=== PATIENT | male | born 1945 | race Caucasian/White ===

== ENCOUNTER 2025-01-28 07:44 | Inpatient (IN) | payer MEDICARE, MEDICAID, SELFPAY ==
[2025-01-28] VITALS (8 sets, daily range): BP systolic 152–198; BP diastolic 51–82; PULSE 54–96; RESP 13–24; TEMP 36.2–36.6; O2SAT 92–98; BMI 37.3
--- NOTE | ~2025-01-28 | CT_ITS ---
CLINICAL HISTORY: stroke CT angiography head and neck with contrast. 3D Postprocessing. Comparison: MR/REG/SR - MR BRAIN WITHOUT IV CONTRAST - 01/28/25 13:[address]/SR - CT HEAD WITHOUT IV CONTRAST - 01/28/25 08:44 EDT Findings: Aortic arch and cervical great vessels are patent with no aneurysm, dissection, or occlusion. Calcified plaque in the bilateral carotid bifurcations with less than 50% stenosis in the proximal right ICA by NASCET criteria. No significant stenosis on the left. 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 Heavy atherosclerotic calcification in the cavernous carotid arteries without occlusion. Bilateral middle cerebral, bilateral anterior cerebral arteries, and right posterior cerebral arteries are patent. No aneurysm, dissection, or occlusion. No abnormal intracranial enhancement. Left [employer] territory infarct. Multiple nodules in both thyroid glands with the largest in the right lobe measuring 2.5 x 1.9 cm. Lung apices clear. No acute fracture. IMPRESSION: 1. 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 2. 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 3. Multiple nodules in both thyroid glands with the largest in the right lobe measuring 2.5 x 1.9 cm. Recommend nonemergent ultrasound for further evaluation. This document has been electronically signed by: Terri Coleman MD on 01/28/2025 21:06:49
--- NOTE | ~2025-01-28 | US_ITS ---
EXAMINATION: US THYROID HISTORY: nodule TECHNIQUE: Real-time grayscale ultrasound imaging was performed and images were reviewed. COMPARISON: Correlation is made with a CT angiogram of the neck dated 01/28/2025. FINDINGS: SIZE: The right thyroid lobe measures 6.1 x 3.4 x 2.3 cm. The left thyroid lobe measures 5.4 x 2.3 x 1.8 cm. The isthmus measures 4 mm. FLOW: Flow to the gland is normal. ECHOGENICITY: The echotexture of the gland is heterogeneous. NODULES: Multiple nodules are identified as described below: Nodule #: 1 Location: Right mid to upper pole measuring 1.7 x 1.1 x 1.4 cm. Shape: Wider than tall (0 points) Margins: Smooth (0 points) Echotexture: Hypoechoic (2 points) Composition: Mostly solid (2 points) Calcifications: None (0 points) Total points: 4 TIRADS: TR4: Moderately suspicious. Nodule #: 2 Location: Right lower pole measuring 2.9 x 2.6 x 2.5 cm. Shape: Taller than wide (3 points) Margins: Ill-defined (0 points) Echotexture: Hypoechoic (2 points) Composition: Mostly solid (2 points) Calcifications: None (0 points) Total points: 7 TIRADS: TR5: Highly suspicious. Nodule #: 3 Location: Left upper pole measuring 0.6 x 0.5 x 0.8 cm. Shape: Wider than tall (0 points) Margins: Ill-defined (0 points) Echotexture: Hypoechoic (2 points) Composition: Solid (2 points) Calcifications: None (0 points) Total points: 4 TIRADS: TR4: Moderately suspicious. Nodule #: 4 Location: Left mid to lower pole measuring 1.0 x 0.8 x 1 0.8 cm. Shape: Wider than tall (0 points) Margins: Ill-defined (0 points) Echotexture: Isoechoic (1 point) Composition: Solid (2 points) Calcifications: None (0 points) Total points: 3 TIRADS: TR3: Mildly suspicious. Nodule #: 5 Location: Left lower pole measuring 1.4 x 1.4 x 1.7 cm. Shape: Wider than tall (0 points) Margins: Smooth (0 points) Echotexture: Isoechoic (1 point) Composition: Solid (2 points) Calcifications: None (0 points) Total points: 3 TIRADS: TR3: Mildly suspicious. US/US thyroid IMPRESSION: Multiple bilateral thyroid nodules are identified as described above. According to ACR TI-RADS guidelines below, ultrasound-guided fine-needle aspiration of the most suspicious nodules (nodules #1 and 2 above on the right) is recommended. ACR TI-RADS Guidelines TR1 (0 points): Benign. No follow-up or biopsy required TR2 (2 points): Not Suspicious. No biopsy or follow up indicated TR3 (3 points): Mildly Suspicious. FNA if >= 2.5 cm, Follow if >= 1.5 cm TR4 (4-6 points): Moderately Suspicious. FNA if >= 1.5 cm, Follow if >= 1.0 cm TR5 (>=7 points): Highly Suspicious. FNA if >= 1.0 cm, Follow if >= 0.5 cm Electronically signed by: Michael Cade MD 01/29/2025 07:09 AM EDT
--- NOTE | ~2025-01-28 | MR_ITS ---
EXAMINATION: MR BRAIN WITHOUT CONTRAST CLINICAL INFORMATION: Evolving stroke. COMPARISON: Correlated to noncontrast CT dated January 28, 2025 at 8:48 AM. TECHNIQUE: MRI of the brain was obtained using routine sequences without contrast. FINDINGS: There is a large volume hyperintense T2 FLAIR restricted diffusion without susceptibility involving the left lingual gyrus, left hippocampus and likely left calcarine fissure. Moore-white matter effacement and effacement of the adjacent cerebral sulci. No mass effect, midline shift, hydrocephalus or herniation. No acute intracranial hemorrhage. Flow-void signal within the main cerebral vessels suggest absent left [employer]. Multiple old lacunar infarcts in the cribriform pattern, basal ganglia. Old lacunar infarct, left putamen and left frontal jones radiata white matter with associated old blood products. Sellar/suprasellar region is normal. Craniocervical junction demonstrates normal position of the cerebellar tonsils. Prominence of the extra-axial CSF spaces cerebral sulci and ventricles. MR/MR head/brain wo con IMPRESSION: Acute nonhemorrhagic stroke/ischemia involving the left [employer] territory. Small vessel occlusive disease. Global cerebral atrophy. Electronically signed by: Justin Gutiérrez MD 01/28/2025 02:15 PM EDT
--- NOTE | ~2025-01-28 | CT_ITS ---
EXAMINATION: CT HEAD WITHOUT IV CONTRAST HISTORY: AMS. TECHNIQUE: Unenhanced helical CT of the head was performed per standard departmental protocol. Coronal and sagittal reformats of the head were also evaluated. One or more of the following techniques was used for dose reduction: Automated exposure control, adjustment of the mA and/or kV according to patient size, use of iterative reconstruction technique. DLP: 733 mGy-cm COMPARISON: There are no prior studies available for comparison. FINDINGS: BRAIN: There is diffuse prominence of the ventricular system and cortical sulci, consistent with atrophy. Periventricular and subcortical white matter hypodensities are noted which are nonspecific, but often seen in the setting of small vessel ischemic disease. There is geographic hypodensity in the left posteromedial temporal lobe, compatible with an evolving infarct. 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 There is no mass effect or midline shift. No intra- or extra-axial fluid collections are identified. SINUSES: There is trace fluid in the left sphenoid sinus. The mastoid air cells and middle ear cavities are well pneumatized. ORBITS: The visualized orbits are unremarkable. BONES/SOFT TISSUES: The extracranial soft tissues are unremarkable. The calvarium is intact. No suspicious lytic or sclerotic lesions. CT/CT head/brain wo IV con IMPRESSION: Findings compatible with an evolving left temporal infarct. No evidence of intracranial hemorrhage. These findings were discussed with Dr. De La Rosa in the emergency room on 01/28/2025 at 9:04 AM. Electronically signed by: Michael Cade MD 01/28/2025 09:04 AM EDT
--- NOTE | 2025-01-28 07:58 | ECG_ITS ---
Test Reason : MEMORY ISUE Blood Pressure : */* mmHG Vent. Rate : 76 BPM Atrial Rate : 76 BPM P-R Int : 136 ms QRS Dur : 150 ms QT Int : 418 ms P-R-T Axes : * -39 31 degrees QTcB Int : 470 ms Sinus rhythm with sinus arrhythmia with occasional Premature ventricular complexes Left axis deviation Right bundle branch block Abnormal ECG No previous ECGs available Referred By: Hilaria De La Rosa Electronically Signed By: YANET GARCIA MD
--- NOTE | 2025-01-28 07:59 | PC.NURSE ---
Addendum entered by Sean Tracey RN 01/28/25 08:21: donna name is Philippe Original Note: 79 M presents to ED with R eye flashing and increased memory issues x 7-10 days. A+Ox1 to self, calm, cooperative, very forgetful of recent events. RR even and unlabored, denies SOB or CP, denies Pain. Pt brought in by donna(Bruce) phone: [phone]
--- NOTE | 2025-01-28 08:03 | ED.GENADULT ---
HPI - General Adult General Chief complaint: General Medical Stated complaint: memory issues Time Seen by Provider: 01/28/25 07:46 Source: patient, old records reviewed and other Mode of arrival: ambulatory Limitations: altered mental status History of Present Illness ED Provider: GABRIELLA VALENCIA narrative: 79 yo male with PMH of HTN, DM but unclear what meds he is taking states [facility] but unclear [facility]. He also admits he really only takes his BP medications. Today his old boss brought him in as the patient works at a [employer] center for years and his new boss noted change in memory about 10 days ago. The patient denies a preceding fall, he has not had any infections, he has no pain, the only thing he reports is seeing dark spots in R eye at times. His old boss who brought him has known him for 13 years and states that Jeff doesn't even know where he lives. There were no signs of memory issues leading up to this. The patient has no complaints but states he doesn't really remember a lot of things. He got lost on his way to work which he has been employed there for over 13 years. MD complaint: confusion Onset (ago): day(s) (10) Radiation: non-radiation Severity: moderate Quality: aching Relieving factors: none Exacerbating factors: none Associated symptoms: denies other symptoms Treatments prior to arrival: none Related Data Allergies Allergy/AdvReac Type Severity Reaction Status Date / Time No Known Allergies Allergy Verified 01/28/25 07:56 Review of Systems Review of Systems: Constitutional : No Fever, No Chills, No Fatigue ENT/Mouth : No sore throat, No Rhinorrhea Eyes: No Eye Pain, No Swelling, No Redness, pos eye floaters Cardiovascular : No Chest Pain, No SOB, No Dyspnea on Exertion Respiratory : No Cough, No Sputum Gastrointestinal : No Nausea, No Vomiting, No Diarrhea, No abdominal Pain Genitourinary : No Dysuria, No Urinary Frequency, No Hematuria, Musculoskeletal : No joint pain, No Myalgias, No Joint Swelling Skin : No Skin Lesions, No rash Neuro : No Weakness, No Numbness, No Dizziness, no Headache All other systems reviewed and are negative PMFSH Past Medical History Attestation statement: The following information was validated with the patient. Medical History Diabetes HTN (hypertension) Social History Social History (Updated 01/28/25 @ 08:10 by Hilaria De La Rosa DO) Alcohol intake: current Patient Tobacco Use Status: Never used Tobacco Smoked in Last 30 Days: No Use of substances other than those prescribed or required for medical reasons: No Advance Directives: No Advance Directives Information Provided: Yes Do you have a plan to hurt others: No Plan Physical Exam ED Vital Signs: Vital Signs - 24 hr 01/28/25 07:48 01/28/25 07:58 01/28/25 08:04 Temperature 97.9 F Pulse Rate 88 88 Respiratory Rate 13 13 Blood Pressure 198/76 H 198/76 H Pulse Oximetry 97 97 Oxygen Delivery Method Room Air Room Air 01/28/25 08:28 Temperature 97.9 F Pulse Rate 75 Respiratory Rate 24 H Blood Pressure 181/82 H Pulse Oximetry 97 Oxygen Delivery Method Room Air BMI result Body Mass Index 37.3 Appearance: Alert. Oriented x 1 to self unclear on where he lives or month/year No acute distress. Eyes: Pupils equal, round and reactive to light. ENT: Pharynx normal. atraumatic Neck: Normal inspection. Neck supple. CVS: Normal heart rate and rhythm. Pulses normal. Respiratory: No respiratory distress. Breath sounds normal. Abdomen: Soft and nontender. Skin: Skin warm and dry. Normal skin color. Normal skin turgor. Extremities: No lower extremity edema. Neuro: Oriented X 1. No motor deficit. No sensory deficit. CN2-12 intact, unsteady shuffling gait NIH Stroke Scale Internal: Initial- Upon Arrival Level of Consciousness: Alert Level of Consciousness Questions: Answers one question correctly Level of Consciousness Commands: Performs one task correctly Visual: No visual loss Facial Palsy: Normal Motor Arm (Right): No drift Motor Arm (Left): No drift Motor Leg (Right): No drift Motor Leg (Left): No drift Limb Ataxia: Absent Sensory: Normal Best Language: No aphasia Dysarthia: Normal Extinction and Inattention: No abnormality Procedures Procedure Narrative Procedure Narrative: EMERGENCY ULTRASOUND INTERPRETATION-Limited Ophthalmic US This study was ordered, performed, and interpreted by myself. The study reveals: Impression: vitreous hemorrhage - at this time it was very difficult due to eye movements and patient confusion Indication:?floatres R eye Anterior Chamber: NO PATHOLOGY VISUALIZED Posterior Chamber: vitreous hemorrhage Performed by: GABRIELLA Date: 01/28/25 Time: 910am CPT: 47719 ; Reference Codes? https://bit.ly/[email or web address] Medical Decision Making Medical Decision Making MDM Narrative: 79 yo male with PMH of HTN, DM but unclear what meds he is taking he is now here with c/o confusion x 10 days without known trauma. At this time will need basic labs, CT head for possible ICH/tumor/stroke, at this time there is a wide differential including termite control servicer cognitive impairment, labs, EKG, UA, metabolic work up. Differential Diagnosis Differential Diagnoses: The differential diagnosis associated with the presentation includes metabolic abnormality, stroke, vitreous hemorrhage, cognitive impairment, urinary pathology Admission/Observation Consideration of admission/observation: Escalation of care including admission/observation considered oral aspirin given will admit for stroke management Consult Healthcare Provider Management of the patient was discussed with: Hospitalist (will admit) Lab Data [facility] Lab Attestation statement: I reviewed the patient's lab results. 01/28/25 08:13 01/28/25 08:13 Labs: Lab Results 01/28/25 01/28/25 01/28/25 Range/Units 08:13 08:21 08:27 WBC 5.8 (4.8-10.8) X10*3/uL RBC 5.35 (4.60-5.80) X10*6/uL Hgb 14.6 (14.0-18.0) g/dl Hct 43.7 (42.0-52.0) % MCV 81.7 (80.0-98.0) fL MCH 27.3 (27.0-33.0) pg MCHC 33.4 (31.0-36.0) g/dl RDW 14.0 (11.0-16.0) % Plt Count 205 (160-400) X10*3/uL MPV 9.6 (9.4-12.4) fL Immature Gran % (Auto) 0.3 (0.0-0.4) % Neut % (Auto) 64.0 (45-73) % Lymph % (Auto) 27.2 (20-40) % Nelson % (Auto) 7.2 (2-11) % Eos % (Auto) 1.0 (0-4) % Baso % (Auto) 0.3 (0-2) % Lymph # (Auto) 1.6 (1.2-4.9) X10*3/uL Nelson # (Auto) 0.4 (0.1-1.2) X10*3/uL Eos # (Auto) 0.1 (0.0-0.4) X10*3/uL Baso # (Auto) 0.0 (0.0-0.2) X10*3/uL Abs Immat Gran (auto) 0.02 (0.00-0.03) X10*3/uL Absolute Neuts (auto) 3.7 (2.0-8.3) x10*3/uL Absolute Nucleated RBC 0.000 (0.0-0.012) X10*3/uL Nucleated RBC % (auto) 0.0 (0.0-0.2) /100WBC VBG pH 7.42 (7.32-7.43) VBG pCO2 34 mmHg VBG pO2 119 mmHg VBG HCO3 22 (22-26) mmol/L VBG O2 Saturation 99.0 % VBG Base Excess -0.8 mmol/L Sodium 140 (135-145) mmol/L Potassium 4.0 (3.3-5.1) mmol/L Chloride 110 H (96-108) mmol/L Carbon Dioxide 23 (22-29) mmol/L Anion Gap 11 L (12-20) BUN 15 (9-16) mg/dL Creatinine 0.73 (0.5-1.4) mg/dL Estim Creat Clear Calc 104.1 Estimated GFR > 60 POC Glucose 241 H (60-115) mg/dL Random Glucose 228 H (60-115) mg/dL Calcium 9.2 (8.4-10.2) mg/dL Magnesium 1.6 (1.6-2.6) mg/dL Total Bilirubin 1.5 H (0.0-1.0) mg/dL Direct Bilirubin 0.4 (0.0-0.5) mg/dL AST 21 (5-37) U/L ALT 17 (0-40) U/L Alkaline Phosphatase 60 (39-117) U/L Ammonia 41 (13-55) umol/L Troponin I High Sens 35.9 H (<3.5-35.0) ng/L C-Reactive Protein 0.17 (< or = 0.50) mg/dL Total Protein 6.8 (6.5-8.0) g/dL Albumin 4.2 (3.5-5.0) g/dL Lipase 34 (8-78) U/L Vitamin B12 485 (200-900) pg/mL Folate 11.0 (> or = 4.0) ng/mL TSH 0.79 (0.32-4.0) uIU/mL Urine Color Urine Appearance Urine pH (5.0-9.0) Ur Specific [place] (1.005-1.025) Urine Protein (Neg-Trace) mg/dL Urine Glucose (UA) (Negative) mg/dL Urine Ketones (Negative) mg/dL Urine Blood (Negative) Urine Nitrite (Negative) Ur Leukocyte Esterase (Negative) Urine RBC (0-2) /HPF Urine WBC (0-5) /HPF Ur Squamous Epith Cells (0-2) /HPF Urine Bacteria (None Seen) Hyaline Casts (0-2) /LPF Urine Opiates Screen (Not Detect) Ur Buprenorphine Scrn (Not Detect) ng/mL Ur Oxycodone Screen (Not Detect) ng/mL Urine Methadone Screen (Not Detect) ng/mL Urine Fentanyl Screen (Not Detect) Ur Barbiturates Screen (Not Detect) Ur Phencyclidine Scrn (Not Detect) Ur Amphetamines Screen (Not Detect) U Benzodiazepines Scrn (Not Detect) Urine Cocaine Screen (Not Detect) U Marijuana (THC) Screen (Not Detect) Ethyl Alcohol < 10 mg/dL COVID-19 (BRYCE) Negative (Negative) COVID-19 Clin Com See Note Influenza Type A (YESENIA) Negative (Negative) Influenza Type B (YESENIA) Negative (Negative) Influenza A & B Note See Note 01/28/25 Range/Units 09:04 WBC (4.8-10.8) X10*3/uL RBC (4.60-5.80) X10*6/uL Hgb (14.0-18.0) g/dl Hct (42.0-52.0) % MCV (80.0-98.0) fL MCH (27.0-33.0) pg MCHC (31.0-36.0) g/dl RDW (11.0-16.0) % Plt Count (160-400) X10*3/uL MPV (9.4-12.4) fL Immature Gran % (Auto) (0.0-0.4) % Neut % (Auto) (45-73) % Lymph % (Auto) (20-40) % Nelson % (Auto) (2-11) % Eos % (Auto) (0-4) % Baso % (Auto) (0-2) % Lymph # (Auto) (1.2-4.9) X10*3/uL Nelson # (Auto) (0.1-1.2) X10*3/uL Eos # (Auto) (0.0-0.4) X10*3/uL Baso # (Auto) (0.0-0.2) X10*3/uL Abs Immat Gran (auto) (0.00-0.03) X10*3/uL Absolute Neuts (auto) (2.0-8.3) x10*3/uL Absolute Nucleated RBC (0.0-0.012) X10*3/uL Nucleated RBC % (auto) (0.0-0.2) /100WBC VBG pH (7.32-7.43) VBG pCO2 mmHg VBG pO2 mmHg VBG HCO3 (22-26) mmol/L VBG O2 Saturation % VBG Base Excess mmol/L Sodium (135-145) mmol/L Potassium (3.3-5.1) mmol/L Chloride (96-108) mmol/L Carbon Dioxide (22-29) mmol/L Anion Gap (12-20) BUN (9-16) mg/dL Creatinine (0.5-1.4) mg/dL Estim Creat Clear Calc Estimated GFR POC Glucose (60-115) mg/dL Random Glucose (60-115) mg/dL Calcium (8.4-10.2) mg/dL Magnesium (1.6-2.6) mg/dL Total Bilirubin (0.0-1.0) mg/dL Direct Bilirubin (0.0-0.5) mg/dL AST (5-37) U/L ALT (0-40) U/L Alkaline Phosphatase (39-117) U/L Ammonia (13-55) umol/L Troponin I High Sens (<3.5-35.0) ng/L C-Reactive Protein (< or = 0.50) mg/dL Total Protein (6.5-8.0) g/dL Albumin (3.5-5.0) g/dL Lipase (8-78) U/L Vitamin B12 (200-900) pg/mL Folate (> or = 4.0) ng/mL TSH (0.32-4.0) uIU/mL Urine Color Yellow Urine Appearance Clear Urine pH 5.5 (5.0-9.0) Ur Specific [place] 1.025 (1.005-1.025) Urine Protein 30 (1+) H (Neg-Trace) mg/dL Urine Glucose (UA) 100 H (Negative) mg/dL Urine Ketones Negative (Negative) mg/dL Urine Blood Negative (Negative) Urine Nitrite Negative (Negative) Ur Leukocyte Esterase Negative (Negative) Urine RBC 0-2 (0-2) /HPF Urine WBC 0-5 (0-5) /HPF Ur Squamous Epith Cells 0-2 (0-2) /HPF Urine Bacteria None Seen (None Seen) Hyaline Casts 0-2 (0-2) /LPF Urine Opiates Screen Not Detected (Not Detect) Ur Buprenorphine Scrn Not Detected (Not Detect) ng/mL Ur Oxycodone Screen Not Detected (Not Detect) ng/mL Urine Methadone Screen Not Detected (Not Detect) ng/mL Urine Fentanyl Screen Not Detected (Not Detect) Ur Barbiturates Screen Not Detected (Not Detect) Ur Phencyclidine Scrn Not Detected (Not Detect) Ur Amphetamines Screen Not Detected (Not Detect) U Benzodiazepines Scrn Not Detected (Not Detect) Urine Cocaine Screen Not Detected (Not Detect) U Marijuana (THC) Screen Not Detected (Not Detect) Ethyl Alcohol mg/dL COVID-19 (BRYCE) (Negative) COVID-19 Clin Com Influenza Type A (YESENIA) (Negative) Influenza Type B (YESENIA) (Negative) Influenza A & B Note Independent Interpretation I performed an independent interpretation of an: EKG and CT Scan (evolving stroke) Interpretation: Rate: 76 Rhythm:NSR with occ PVCs Roark: left Normal P waves. Normal BAKARI. RBBB ST T wave : no TRESSA, flat t waves I and aVL qTC: 470 prior studies: no prior The study has been interpreted contemporaneously by me. . Radiology Impression Discussion of test interpretation with radiology: I have reviewed the radiologist's reading. Independent Historian Clinical information obtained from an independent historian. History obtained from or confirmed by: Friend External Record Review External record reviewed: Outpatient record Discharge Plan Discharge Clinical Impression: Acute alteration in mental status Stroke Qualifiers: CVA mechanism: unspecified Qualified Code(s): I63.9 - Cerebral infarction, unspecified Patient Disposition: Admitted As Inpatient Print Language: Pakistani
[2025-01-28 08:21] LABS: MANUAL DIFF FLAG NO
[2025-01-28 08:22] LABS: Hematocrit 43.7 % (42.0-52.0); Hemoglobin 14.6 g/dl (14.0-18.0); Imm Gran Abs Auto 0.02 X10*3/uL (0.00-0.03); Imm Gran Pct Auto 0.3 % (0.0-0.4); Lymphocytes Absolute Auto 1.6 X10*3/uL (1.2-4.9); Mean Corpuscular HGB Conc 33.4 g/dl (31.0-36.0); Mean Corpuscular Hemoglobin 27.3 pg (27.0-33.0); Mean Corpuscular Volume 81.7 fL (80.0-98.0); NRBC Abs Auto 0.000 X10*3/uL (0.0-0.012); NRBC Pct Auto 0.0 /100WBC (0.0-0.2); Platelet Count 205 X10*3/uL (160-400); Red Blood Count 5.35 X10*6/uL (4.60-5.80); White Blood Count 5.8 X10*3/uL (4.8-10.8)
[2025-01-28 08:25] LABS: Venous Blood Gas Refer to POC result
[2025-01-28 08:26] LABS: VBG HCO3 22 mmol/L (22-26); VBG O2 % Saturation 99.0 %
[2025-01-28 08:30] LABS: Ammonia 41 umol/L (13-55)
[2025-01-28 08:31] LABS: Glucose, Whole Blood 241 mg/dL (60-115)
[2025-01-28 08:39] LABS: Alanine Aminotransferase 17 U/L (0-40); Albumin Level 4.2 g/dL (3.5-5.0); Alkaline Phosphatase 60 U/L (39-117); Anion Gap 11 (12-20); Aspartate Amino Transferase 21 U/L (5-37); Blood Urea Nitrogen 15 mg/dL (9-16); Calcium 9.2 mg/dL (8.4-10.2); Carbon Dioxide 23 mmol/L (22-29); Chloride 110 mmol/L (96-108); Creatinine Clr Calc Pharmacy 104.1; Estimated Glomerular Filt Rate > 60; Lipase 34 U/L (8-78); Magnesium 1.6 mg/dL (1.6-2.6); Potassium 4.0 mmol/L (3.3-5.1); Sodium 140 mmol/L (135-145); Total Protein 6.8 g/dL (6.5-8.0)
[2025-01-28 08:47] LABS: Troponin-I High Sensitivity 35.9 ng/L (<3.5-35.0)
--- OUTSIDE RECORDS SUMMARY | 2025-01-28 08:48 | XMS_ITS | Clinical Summary ---
Author Organization [address] [facility] Address [address] [place] [address] Phone Care Team Providers Care Supervisor Small Appliance Assembly Name Role Phone Bk Vargas MD Primary Care Provider [phone] Allergies No known active allergies Medications semaglutide (Rybelsus) 7 mg tablet Take 1 tablet (7 mg total) by mouth 1 (one) time each day before breakfast. 4 Active omeprazole (PriLOSEC) [address] capsule Take 1 capsule (40 mg total) by mouth 1 (one) time each day. 9 Active loratadine-pseu doephedrine (CLARITIN-D 12-hour) 5-120 mg per 12 hr tablet Take 1 tablet by mouth every 12 (twelve) hours. 4 Active loratadine (CLARITIN) 10 mg tablet Take 1 tablet (10 mg total) by mouth once daily as needed. 4 Active freestyle 28 gauge lancets Use to check BG BID DX E11.22 Freestyle Lancets 4 Active lancing device 1 each by Other route 2 times daily. 1 Active fluticasone propionate (FLONASE) 50 mcg/actuation nasal spray Administer 1 spray into each nostril 1 (one) time each day. Active fluoride, sodium, 1.1 % gel Use in the mouth or throat daily. 4 Active fenofibrate micronized (LOFIBRA) 134 mg capsule Take 1 capsule (134 mg total) by mouth 1 (one) time each day with breakfast. 4 Active fenofibrate (LOFIBRA) 160 mg tablet Take 1 tablet (160 mg total) by mouth 1 (one) time each day with breakfast. 4 Active erythromycin 5 mg/gram (0.5 %) ophthalmic ointment APPLY 0.5 INCHES TO EYE 4 (FOUR) TIMES DAILY FOR 7 DAYS 4 Active Jardiance 25 mg tablet Take 1 tablet (25 mg total) by mouth 1 (one) time each day in the morning. 4 Active Banophen 25 mg capsule TAKE 1 CAPSULE BY MOUTH EVERY DAY *NOT COVERED BUY OTC 5 Active Farxiga 5 mg tablet Take 1 tablet (5 mg total) by mouth 1 (one) time each day. 4 Active atorvastatin (LIPITOR) 80 mg tablet Take 1 tablet (80 mg total) by mouth at bedtime. Active Ventolin HFA 90 mcg/actuation inhaler INHALE 2 PUFFS INTO THE LUNGS EVERY 4 (FOUR) HOURS NEEDED FOR SHORTNESS OF BREATH OR WHEEZING Active losartan (COZAAR) 100 mg tablet Take 1 tablet (100 mg total) by mouth 1 (one) time each day. 9 Active polyethylene glycol (Golytely) 236-22.74-6.74 -5.86 gram solution Take 4L by mouth once for one dose. May substitue any PEG. Starting at 6PM the night before your procedure drink 1 8oz glasses at your own pace until you complete half of the gallon. Finish 2nd half of the gallon 5 hours before your procedure. 4000 mL 5 Active bisacodyL (DULCOLAX) 5 mg EC tablet Take 2 tablets by mouth right before beginning bowel prep. See instructions provided by the office 2 tablet 5 Active amLODIPine (NORVASC) 5 mg tablet Take 1 tablet (5 mg total) by mouth 1 (one) time each day. 5 Active Medical History Medical History Date Comments Diabetes mellitus (CMS/HCC V24, CMS/HCC V28) DX:Diabetes mellitus (HCC) High blood pressure DX:High bloo d pressure Social History Tobacco Use Types Packs/Day Years Used Date Smoking Tobacco: Never Assessed Interpersonal Safety Answer Date Record ed Physical Abuse Unrecognized value 06/26/2024 Verbal Abuse Unrecognized value 06/26/2024 Sex and Gender Information Value Date Recorded Sex Assigned at Male 06/25/2024 9:38 AM EDT Legal Sex Male 1:39 AM EST Gender Identity Male 06/25/2024 9:38 AM EDT Sexual Orientation Straight 06/25/2024 1: 12 PM EDT Obstetrics History Last Filed Vital Signs Vital Sign Reading Time Taken Comments Blood Pressure 127/62 06/26/2024 11:01 AM EDT Pulse 82 06/26/2024 11:01 AM EDT Temperature 36.6 C (97.8 F) 06/26/2024 9:58 AM EDT Respiratory Rate 16 06/26/2024 11:01 AM EDT Oxygen Saturation 98% 06/26/2024 11:01 AM EDT Inhaled Oxygen Concentration - - Weight 109 kg (240 lb) 06/26/2024 9:58 AM EDT Height 175.3 cm (5' 9 ) 06/26/2024 9:58 AM EDT Body Mass Index 35.44 06/26/2024 9:58 AM EDT Plan of Treatment Health Maintenance Due Date Last Done Comments Diabetes: Annual Foot Exam 1955 Diabetes: Annual Retina Eye Exam 1955 RSV Immunization Adult Patients (1 - 1-dose 75+ series) 2021 Medicare Annual Wellness Visit 03/02/2024 Social Influencers of Health Screening 03/02/2024 Depression Screening 04/08/2024 COVID-19 Vaccine ( season) 2024 02/10/2022, 03/15/2021, 06/18/2020, Additional history exists Influenza Vaccine (#1) 2024 , 04/30/2023, 02/10/2022, Additional history exists Diabetes: Blood Sugar Control Test (HGBA1C) 02/06/2025 08/06/2024, 03/07/2024 Diabetes: Annual Urine Albumin-Creatinine Ratio (uACR) 03/07/2025 03/07/2024, 03/28/2022, 06/27/2020, Additional history exists Diabetes: Annual GFR (Glomerular Filtration Rate) 03/07/2025 03/07/2024 Hypertension/CHF/CAD Annual BMP Blood Test 03/07/2025 03/07/2024 Falls Risk Assessment 06/26/2025 06/26/2024 DTaP,Tdap,and Td Vaccines (3 - Td or Tdap) 02/25/2029 02/25/2019, 05/30/2015 Cholesterol Screening (Lipid Panel) 03/07/2029 03/07/2024, 03/07/2024, 03/28/2022, Additional history exists Pneumococcal Vaccine: 50+ Years Completed 02/18/2017, 05/30/2015 Hepatitis C Screening Completed 01/03/2018, 018 Zoster Vaccines Completed 09/18/2022, 07/10/2022 Colorectal Cancer Screening: Colonoscopy Discontinued 06/26/2024 HIB Vaccines Aged Out No longer eligi ble based on patient's age to complete this topic HPV Vaccines Aged Out No longer eligi ble based on patient's age to complete this topic Hepatitis A Vaccines Aged Out No long er eligible based on patient's age to complete this topic Hepatitis B Vaccines Aged Out No long er eligible based on patient's age to complete this topic IPV Vaccines Aged Out No longer eligi ble based on patient's age to complete this topic MMR Vaccines Aged Out No longer eligi ble based on patient's age to complete this topic Meningococcal ACWY Vaccine Aged Out N o longer eligible based on patient's age to complete this topic Meningococcal B Vaccine Aged Out No l onger eligible based on patient's age to complete this topic RSV Immunization Patients Under 20 months Aged Out No longer eligible based on patient's age to complete this topic Varicella Vaccines Aged Out No longer eligible based on patient's age to complete this topic Procedures Procedure Name Priority Date/Time Associated Diagnosis Comments COLONOSCOPY Routine 06/26/2024 10:40 AM EDT Adenomatous polyp of colon, unspecified part of colon from Last 3 Months or Most Recently Relevant to Health Maintenance Results * COLONOSCOPY Anesthesia - MAC; [facility] ENDOSCOPY (06/26/2024 10:40 AM EDT) Anatomical Region Laterality Modality Other 06/26/2024 10:1 9 AM EDT Impressions 06/26/2024 10:41 AM EDT - One 6 mm polyp in the sigmoid colon, removed with a cold snare. Resected and retrieved. - One 3 mm polyp in the transverse colon, removed with a jumbo cold forceps. Resected and retrieved. Recommendation: - Patient has a contact number available for emergencies. The signs and symptoms of potential delayed complications were discussed with the patient. Return to normal activities tomorrow. Written discharge instructions were provided to the patient. - Resume previous diet. - Continue present medications. - Await pathology results. - Repeat colonoscopy in 5-10 years for surveillance. Narrative 06/26/2024 10:[address] [facility] GI Patient Name: Jeff Villalba Procedure Date: 06/26/2024 10:19 AM Date of : 1945 Age: 78 Room: ROOM 14 Gender: Male Note Status: Finalized Attending MD: Denver Degroot MD, Procedure Date No Time: 06/26/2024 Procedure: Colonoscopy Indications: High risk colon cancer surveillance: Personal history of colonic polyps Providers: Denver Degroot MD Referring MD: Denver Degroot MD Medicines: Monitored Anesthesia Care Complications: No immediate complications. Estimated Blood Loss: Estimated blood loss was minimal. Procedure: After I obtained informed consent, the scope was passed under direct vision. Throughout the procedure, the patient's blood pressure, pulse, and oxygen saturations were monitored continuously. The Olympus Colonoscope was introduced through the anus and advanced to the cecum, identified by appendiceal orifice and ileocecal valve. The colonoscopy was performed without difficulty. The patient tolerated the procedure well. The quality of the bowel preparation was adequate. Findings: A 6 mm polyp was found in the sigmoid colon. The polyp was sessile. The polyp was removed with a cold snare. Resection and retrieval were complete. A 3 mm polyp was found in the transverse colon. The polyp was sessile. The polyp was removed with a jumbo cold forceps. Resection and retrieval were complete. Procedure Code(s): --- Professional --- 69642, Colonoscopy, flexible; with removal of tumor(s), polyp(s), or other lesion(s) by snare technique [id number], 59, Colonoscopy, flexible; with biopsy, single or multiple Diagnosis Code(s): --- Professional --- D12.3, Benign neoplasm of transverse colon (hepatic flexure or splenic flexure) D12.5, Benign neoplasm of sigmoid colon Z86.010, Personal history of colonic polyps CPT copyright 2020 [employer]. All rights reserved. The codes documented in this report are preliminary and upon environmental services attendant review may be revised to meet current compliance requirements. MD Denver Flores MD 06/26/2024 10:41:17 AM This report has been signed electronically.Denver Degroot MD Number of Addenda: 0 Note Initiated On: 06/26/2024 10:19 AM Scope In: Scope Out: Endoscopy Department at [facility] - [address] [place] [id number] Procedure Note Denver Degroot MD - 06/26/2024 [facility] GI Patient Name: Jeff Villalba Procedure Date: 06/26/2024 10:19 AM Date of : 1945 Age: 78 Room: ROOM 14 Gender: Male Note Status: Finalized Attending MD: Denver Degroot MD, Procedure Date No Time: 06/26/2024 Procedure: Colonoscopy Indications: High risk colon cancer surveillance: Personalhistory of colonic polyps Providers: Denver Degroot MD Referring MD: Denver Degroot MD Medicines: Monitored Anesthesia Care Complications: No immediate complications. Estimated Blood Loss: Estimated blood loss was minimal. Procedure: After I obtained informed consent, the scope was passed under direct vision. Throughout theprocedure, the patient's blood pressure, pulse, and oxygen saturations were monitored continuously. TheOlympus Colonoscope was introduced through the anus and advanced to the cecum, identified by appendiceal orifice and ileocecal valve. The colonoscopy was performed without difficulty. The patient tolerated the procedure well. The quality of the bowel preparation was adequate. Findings: A 6 mm polyp was found in the sigmoid colon. Thepolyp was sessile. The polyp was removed with a coldsnare. Resection and retrieval were complete. A 3 mm polyp was found in the transverse colon. The polyp was sessile. The polyp was removed with ajumbo cold forceps. Resection and retrieval werecomplete. Procedure Code(s): --- Professional --- 10323, Colonoscopy, flexible; with removal of tumor(s), polyp(s), or other lesion(s) by snare technique [id number], 59, Colonoscopy, flexible; with biopsy,single or multiple Diagnosis Code(s): --- Professional --- D12.3, Benign neoplasm of transverse colon (hepatic flexure or splenic flexure) D12.5, Benign neoplasm of sigmoid colon Z86.010, Personal history of colonic polyps CPT copyright 2020 [employer]. All rights reserved. The codes documented in this report are preliminary and upon environmental services attendant reviewmay be revised to meet current compliance requirements. MD Denver Flores MD 06/26/2024 10:41:17 AM This report has been signed electronically.Denver Degroot MD Number of Addenda: 0 Note Initiated On: 06/26/2024 10:19 AM Scope In: Scope Out: Endoscopy Department at [facility] - [address] [place] [id number] IMPRESSION: - One 6 mm polyp in the sigmoid colon, removed with a cold snare. Resected and retrieved. - One 3 mm polyp in the transverse colon, removedwith a jumbo cold forceps. Resected and retrieved. Recommendation: - Patient has a contact number available for emergencies. The signs and symptoms of potential delayed complications were discussed with thepatient. Return to normal activities tomorrow. Written discharge instructions were provided to thepatient. - Resume previous diet. - Continue present medications. - Await pathology results. - [email or web address] Denver Degroot MD GI~PROCEDURE ORDERABLES Final R esult from Last 3 Months or Most Recently Relevant to Health Maintenance Insurance MEDICAID - [place] MEDICARE Advance Directives Documents on File Type Date Recorded Patient Banana Loader Expl anation Advance Directives and Living Will 06/30/2024 4:28 PM PROXY Power of Cable Operator 06/26/2024 9:56 AM Bimal Care Proxy Care Teams Supervisor Small Appliance Assembly Relationship Specialty Start Date End Date Bk Vargas MD [address] [place] [address] PCP - General Internal Medicine 12/04/18
--- OUTSIDE RECORDS SUMMARY | 2025-01-28 08:48 | XMS_ITS | Encounter Summary ---
Author Organization [facility] Address [address] [place] [address] Care Team Providers Care Reset Merchandiser Name Role Phone Zena Brown PA-C Primary Care Provider Encounter Details Date Type Department Care Team (Late Contact Info) Description 12/20/2021 Interim Notes [facility] [address] [place] [phone] Lucia Michele, Community Health Worker [address] [place] [address] Social History Tobacco Use Types Packs/Day Years Used Date Smoking Tobacco: Never Smokeless Tobacco: Never Alcohol Use Standard Drinks/Week Comments No 0 (1 standard drink = 0.6 oz pur e alcohol) Social Connections Answer Date Recorded Connectedness 0 12/20/2021 Financial Resource Strain Answer Date R ecorded Financial Resource Strain 0 2021 Stress Answer Date Recorded Stress 0 12/20/2021 Physical Activity Answer Date Recorded Physical Activity 0 11/24/2018 Food Insecurity Answer Date Recorded Food 0 12/20/2021 Transportation Needs Answer Date Record ed Transportation 0 12/20/2021 Housing Stability Answer Date Recorded Housing 0 12/20/2021 Safety and Environment Answer Date Saqib rded Safety 0 12/20/2021 Utilities Answer Date Recorded Utilities 0 12/20/2021 Employment Answer Date Recorded Stress 0 12/20/2021 Sex and Gender Information Value Date Recorded Sex Assigned at Male 02/18/2017 1:28 PM PST Legal Sex Male 11:36 AM PDT Gender Identity Male 02/18/2017 1:28 PM PST Sexual Orientation Straight 04/05/2017 10 :44 AM PST documented as of this encounter Plan of Treatment Upcoming Encounters Date Type Department Care Team (Late Contact Info) Description 01/29/2025 3:20 PM EDT Office Visit [facility] [address] [place] [address] Juan Smith, JewelD [address] [place] [address] 02/26/2025 3:00 PM EST Office Visit [facility] [address] [place] [phone] Caridad Tovar, DMD [address] [place] [address] 07/01/2025 4:20 PM EDT Office Visit [facility] [address] [place] [phone] Roseann Moulton [address] [place] [address] documented as of this encounter Visit Diagnoses Not on filedocumented in this encounter Care Teams Reset Merchandiser Relationship Specialty Start Date End Date Zena Brown PA-C [address] [place] [address] PCP - General [facility]ILY MEDICINE[facility]ANG 10/28/24 documented as of this encounter
--- OUTSIDE RECORDS SUMMARY | 2025-01-28 08:50 | XMS_ITS | Clinical Summary ---
Author Organization [facility] Address [address] [place] [address] Care Team Providers Care Camp Head Counselor Name Role Phone Bk Vargas MD Primary Care Provider [phone] Allergies No known active allergies Medications Medication Sig Dispensed Refills Start Date End Date Status fluticasone (FLONASE) 50 MCG/ACT nasal spray 1 SPRAY INTO THE NOSTRIL(S) ONCE DAILY 0 11/29/2018 Active hydroCHLOROthiazide (HYDRODIURIL) tablet 25 mg Take 25 mg by mouth daily. 3 11/04/2018 Active ibuprofen (ADVIL,MOTRIN) 600 MG tablet TAKE 1 TABLET BY MOUTH FOUR TIMES A DAY NEEDED FOR PAIN 1 11/27/2018 Active loratadine (CLARITIN) 10 MG tablet TAKE 1 TABLET BY MOUTH ONCE DAILY NEEDED FOR ALLERGIES 2 11/15/2018 Active losartan (COZAAR) 100 MG tablet Take 100 mg by mouth daily. 5 09/21/2018 Active omeprazole (PriLOSEC) 40 MG capsule Take 40 mg by mouth daily. 11 09/30/2018 Active pravastatin (PRAVACHOL) tablet 40 mg Take 40 mg by mouth daily. 1 11/11/2018 Active metFORMIN (GLUCOPHAGE-XR) ER 24 hr tablet 500 mg Take 1,000 mg by mouth. 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 Social History Tobacco Use Types Packs/Day Years Used Date Smoking Tobacco: Never Assessed Sex and Gender Information Value Date Recorded Sex Assigned at Not on file Gender Identity Not on file Sexual Orientation Not on file Last Filed Vital Signs Vital Sign Reading Time Taken Comments Blood Pressure - - Pulse - - Temperature - - Respiratory Rate - - Oxygen Saturation - - Inhaled Oxygen Concentration - - Weight 117.9 kg (260 lb) 12/12/2018 3:34 PM EDT Height 175.3 cm (5' 9 ) 12/12/2018 3:34 PM EDT Body Mass Index 38.4 12/12/2018 3:34 PM EDT Plan of Treatment Health Maintenance Due Date Last Done Comments Hepatitis C Screening 1945 COVID-19 Vaccine (#1) 03/21/1946 Depression Screening 1958 BMI Counseling 1964 Preventative Health Evaluation 1963 Shingrix-Zoster Vaccine (1 of 2) 1996 Fall Risk Assessment 09/20/2011 RSV Adult > 60+ Yrs or (1 - 1-dose 75+ series) 2021 Influenza Vaccine (#1) 2024 8, 01/31/2017, 02/12/2016, Additional history exists DTap / Tdap / Td (2 - Td or Tdap) 05/30/2025 05/30/2015 Pneumococcal Vaccine Completed 02/18/2017, 05/30/19 16 Hepatitis B Vaccines Aged Out No long er eligible based on patient's age to complete this topic RSV Ped < 20 months Aged Out No longe r eligible based on patient's age to complete this topic Care Teams Camp Head Counselor Relationship Specialty Start Date End Date Bk Vargas MD [address] [place] [address] PCP - General Internal Medicine 12/04/18
[2025-01-28 09:02] LABS: IDNOW Serial# 58CA691E
[2025-01-28 09:03] LABS: COVID-19 Test Negative (Negative); IDNOW Serial# 55D5AD1C; Influenza B2 Negative (Negative)
[2025-01-28 09:11] LABS: Folate 11.0 ng/mL (> or = 4.0); Vitamin B12 485 pg/mL (200-900)
[2025-01-28 09:12] LABS: Appearance Urine Clear; Glucose Urine UA 100 mg/dL (Negative); PH 5.5 (5.0-9.0); Specific Gravity - Urine 1.025 (1.005-1.025); UMIC TRIGGER UACC YES
[2025-01-28 09:21] LABS: Cannabinoid Screen Urine Not Detected (Not Detect)
--- NOTE | 2025-01-28 09:37 | PM.IMHP ---
History of Present Illness Date of Service: 01/28/25 Chief Complaint: Memory issues, visual problems 79-year-old male with a history of hypertension (on Norvasc 10 mg daily), hyperlipidemia (on Lipitor 80 mg), diabetes mellitus (on metformin 500 mg BID and Farxiga), and GERD (on PPI), presented to the ED after his friend and employer noted recent confusion. The patient has been alert only to self, unable to state his address, and has had difficulty driving to work. He reports a sensation of fluid in the right eye but denies visual loss. No focal neurological deficits were noted on exam. Review of Systems Review of Systems: General: Confusion, no fever or chills Eyes: Sensation of fluid in right eye, no visual loss Neurological: Disorientation, no focal deficits reported Other systems: Unremarkable [facility] Medical History HLD (hyperlipidemia) Diabetes HTN (hypertension) Social History (Updated 01/28/25 @ 08:10 by Hilaria De La Rosa DO) Household Members: None Housing: Apartment Do you presently have visiting nurse or other home services: No Alcohol intake: current Patient Tobacco Use Status: Never used Tobacco Tobacco use type: Cigar e-Cigarette/Vaping Use: Never Used Second Hand Smoke Exposure: No Meds Allergies Allergy/AdvReac Type Severity Reaction Status Date / Time No Known Allergies Allergy Verified 01/28/25 07:56 Active Medications: Current Medications Acetaminophen (Acetaminophen 325 Mg Tablet) 650 mg PO Q6H PRN PRN Reason: Pain, Mild 1-3,fever,headache Aspirin (Aspirin Enteric Coated 81 Mg Tablet.) 81 mg PO DAILY [facility] Atorvastatin Calcium (Atorvastatin Calcium 80 Mg Tablet) 80 mg PO DAILY [facility] Calcium Carbonate (Calcium Carbonate 750 Mg Tab.Chew) 750 mg PO Q4H PRN PRN Reason: Heartburn Magnesium Hydroxide (Milk Of Magnesia 30 Ml Oral.Susp) 30 ml PO DAILY PRN PRN Reason: Constipation Melatonin (Melatonin 3 Mg Tablet) 6 mg PO BEDTIME PRN PRN Reason: Insomnia Ondansetron HCl (Ondansetron Hcl 4 Mg/2 Ml Vial) 4 mg IVPUSH Q8H PRN PRN Reason: Nausea and Vomiting Polyethylene Glycol (Polyethylene Glycol 3350 17 Gm Powd.Pack) 17 gm PO DAILY PRN PRN Reason: Constipation Home Medications ?Medication ?Instructions ?Recorded ?Confirmed ?Last Taken ?Type amlodipine 10 mg tablet 10 mg PO DAILY 01/28/25 01/28/25 01/27/25 History atorvastatin 80 mg tablet 80 mg PO BEDTIME 01/28/25 01/28/25 01/27/25 History dapagliflozin propanediol 10 mg 10 mg PO QAM 01/28/25 01/28/25 01/27/25 History tablet (Farxiga) diphenhydramine HCl 25 mg capsule 25 mg PO DAILY PRN allergies 01/28/25 01/28/25 01/27/25 History fenofibrate 160 mg tablet 160 mg PO QAM 01/28/25 01/28/25 01/27/25 History fluticasone propionate 50 1 spray intranasal DAILY 01/28/25 01/28/25 01/27/25 History mcg/actuation nasal spray,suspension losartan 100 mg tablet 100 mg PO DAILY 01/28/25 01/28/25 01/27/25 History metformin 500 mg tablet,extended 1,000 mg PO DAILY 01/28/25 01/28/25 01/28/25 06:00 History release 24 hr semaglutide 14 mg tablet (Rybelsus) 14 mg PO DAILY 01/28/25 01/28/25 01/27/25 History Physical Exam Vital Signs and Narrative: Vital Signs: Last Vital Signs Temp 97.9 F 01/28/25 08:28 Pulse 75 01/28/25 08:28 Resp 24 H 01/28/25 08:28 BP 181/82 H 01/28/25 08:28 Pulse Ox 97 01/28/25 08:28 O2 Del Method Room Air 01/28/25 08:28 BMI result Body Mass Index 37.3 Results Labs 01/29/25 05:56 01/29/25 05:56 Labs: Laboratory Results - last 24 hr 01/28/25 01/28/25 01/28/25 08:13 08:21 08:27 MCV 81.7 MCH 27.3 MCHC 33.4 RDW 14.0 Plt Count 205 MPV 9.6 Immature Gran % (Auto) 0.3 Neut % (Auto) 64.0 Lymph % (Auto) 27.2 [place] % (Auto) 7.2 Eos % (Auto) 1.0 Baso % (Auto) 0.3 Lymph # (Auto) 1.6 [place] # (Auto) 0.4 Eos # (Auto) 0.1 Baso # (Auto) 0.0 Abs Immat Gran (auto) 0.02 Absolute Neuts (auto) 3.7 Absolute Nucleated RBC 0.000 Nucleated RBC % (auto) 0.0 VBG pH 7.42 VBG pCO2 34 VBG pO2 119 VBG HCO3 22 VBG O2 Saturation 99.0 VBG Base Excess -0.8 Anion Gap 11 L Estim Creat Clear Calc 104.1 Estimated GFR > 60 POC Glucose 241 H Random Glucose 228 H Calcium 9.2 Magnesium 1.6 Total Bilirubin 1.5 H Direct Bilirubin 0.4 AST 21 ALT 17 Alkaline Phosphatase 60 Ammonia 41 Troponin I High Sens 35.9 H C-Reactive Protein 0.17 Total Protein 6.8 Albumin 4.2 Lipase 34 Vitamin B12 485 Folate 11.0 TSH 0.79 Urine Color Urine Appearance Urine pH Ur Specific [place] Urine Protein Urine Glucose (UA) Urine Ketones Urine Blood Urine Nitrite Ur Leukocyte Esterase Urine RBC Urine WBC Ur Squamous Epith Cells Urine Bacteria Hyaline Casts Urine Opiates Screen Ur Buprenorphine Scrn Ur Oxycodone Screen Urine Methadone Screen Urine Fentanyl Screen Ur Barbiturates Screen Ur Phencyclidine Scrn Ur Amphetamines Screen U Benzodiazepines Scrn Urine Cocaine Screen U Marijuana (THC) Screen Ethyl Alcohol < 10 COVID-19 (BRYCE) Negative COVID-19 Clin Com See Note Influenza Type A (YESENIA) Negative Influenza Type B (YESENIA) Negative Influenza A & B Note See Note 01/28/25 09:04 MCV MCH MCHC RDW Plt Count MPV Immature Gran % (Auto) Neut % (Auto) Lymph % (Auto) [place] % (Auto) Eos % (Auto) Baso % (Auto) Lymph # (Auto) [place] # (Auto) Eos # (Auto) Baso # (Auto) Abs Immat Gran (auto) Absolute Neuts (auto) Absolute Nucleated RBC Nucleated RBC % (auto) VBG pH VBG pCO2 VBG pO2 VBG HCO3 VBG O2 Saturation VBG Base Excess Anion Gap Estim Creat Clear Calc Estimated GFR POC Glucose Random Glucose Calcium Magnesium Total Bilirubin Direct Bilirubin AST ALT Alkaline Phosphatase Ammonia Troponin I High Sens C-Reactive Protein Total Protein Albumin Lipase Vitamin B12 Folate TSH Urine Color Yellow Urine Appearance Clear Urine pH 5.5 Ur Specific [place] 1.025 Urine Protein 30 (1+) H Urine Glucose (UA) 100 H Urine Ketones Negative Urine Blood Negative Urine Nitrite Negative Ur Leukocyte Esterase Negative Urine RBC 0-2 Urine WBC 0-5 Ur Squamous Epith Cells 0-2 Urine Bacteria None Seen Hyaline Casts 0-2 Urine Opiates Screen Not Detected Ur Buprenorphine Scrn Not Detected Ur Oxycodone Screen Not Detected Urine Methadone Screen Not Detected Urine Fentanyl Screen Not Detected Ur Barbiturates Screen Not Detected Ur Phencyclidine Scrn Not Detected Ur Amphetamines Screen Not Detected U Benzodiazepines Scrn Not Detected Urine Cocaine Screen Not Detected U Marijuana (THC) Screen Not Detected Ethyl Alcohol COVID-19 (BRYCE) COVID-19 Clin Com Influenza Type A (YESENIA) Influenza Type B (YESENIA) Influenza A & B Note Imaging Radiologist's Impressions: Impressions Head CT 01/28/25 08:44 IMPRESSION: Findings compatible with an evolving left temporal infarct. No evidence of intracranial hemorrhage. These findings were discussed with Dr. De La Rosa in the emergency room on 01/28/2025 at 9:04 AM. Electronically signed by: Michael Cdae MD 01/28/2025 09:04 AM EDT RP Assessment and Plan (1) Stroke: Qualifiers: CVA mechanism: unspecified Qualified Code(s): I63.9 - Cerebral infarction, unspecified Status: Acute (2) Acute alteration in mental status: Status: Acute (3) HLD (hyperlipidemia): Status: Acute Plan 79-year-old male with multiple vascular risk factors (HTN, DM, HLD) presenting with acute confusion and disorientation, found to have an evolving left temporal infarct on CT. No focal neurological deficits on exam. Troponin elevated, likely demand-related but requires further evaluation. Hyperglycemia and suboptimal diabetes control. Proteinuria noted. Plan: Acute Ischemic Stroke Admit to monitored setting Continue close neurological monitoring MRI brain to confirm and further characterize infarct Neurology consult for management and recommendations Maintain BP per stroke protocol--permisive HTN Physical and Occupational Therapy Secondary Stroke Prevention with ASA, statin Troponin elevated; likely type 2 [place], no chest pain EKG and telemetry monitoring, repeat troponin Echocardiogram to assess for cardiac source of embolism and wall motion abnormalities Diabetes Management SSI, diabetic diet, hold metformin for now Proteinuria outpatient follow NANCY for BP when able HTN, resume med DVT prophylaxis: Lovenox Full code diabetic diet Quality Stroke Does the patient have a stroke diagnosis?: No VTE Prior VTE?: No VTE Risk Level:: Medical - moderate - high VTE Device Contraindication: Treatment Not Indicated VTE Drug Contraindication: N/A - Med Ordered
[2025-01-28 09:45] LABS: Cholesterol 169 mg/dL (<200); HDL Cholesterol 38 mg/dL (>40); Triglycerides 139 mg/dL (<150)
--- NOTE | 2025-01-28 10:29 | P.CNNE_ITS ---
History of Present Illness Data of Consult Service Date: 01/28/25 Primary Care Provider: Unknown Physician HPI Reason for consult: Change in mental status 79 years old man with hypertension and diabetes working was brought to hospital with change in mental status or confusion. Apparently this started few days ago. Apparently his employer or some other people noted problem with him and he was sent here. There was no evidence of any focal weakness or seizure. He did not have any recent febrile illness. He said that there was something wrong with him but he could not elaborate. He denied drinking alcohol, ?at least not for few years?. There was no known history of any use of illicit drug. Review of Systems 2 Review of Systems: Constitutional:?No fever, chills, fatigue, weight loss, or night sweats. HEENT:?No headache, vision changes, hearing loss, nasal congestion, sore throat. Cardiovascular:?No chest pain, palpitations, orthopnea, PND, or leg swelling. Respiratory:?No cough, shortness of breath, wheezing, or hemoptysis. Gastrointestinal:?No nausea, vomiting, abdominal pain, diarrhea, or constipation. Genitourinary:?No dysuria, frequency, incontinence, or hematuria. Musculoskeletal:?No joint pain, stiffness, weakness, or muscle aches. Neurological:? No seizure-like activity Psychiatric:? No history of drug or alcohol use, as per patient Endocrine:?No heat/cold intolerance, polydipsia, polyuria, or hair/skin changes. Hematologic/Lymphatic:?No easy bruising, bleeding, or lymphadenopathy. Integumentary (Skin):?No rash, lesions, itching, or color changes. Allergic/Immunologic:?No seasonal allergies, hives, or recurrent infections. [facility] Past Medical History Medical History (Updated 01/28/25 @ 10:21 by Clint Kang MD) HLD (hyperlipidemia) Diabetes HTN (hypertension) Social History Social History (Updated 01/28/25 @ 08:10 by Hilaria De La Rosa DO) Alcohol intake: current Patient Tobacco Use Status: Never used Tobacco Smoked in Last 30 Days: No Use of substances other than those prescribed or required for medical reasons: No Advance Directives: No Advance Directives Information Provided: Yes Do you have a plan to hurt others: No Plan Meds Allergies Allergy/AdvReac Type Severity Reaction Status Date / Time No Known Allergies Allergy Verified 01/28/25 07:56 Active Medications: Current Medications Acetaminophen (Acetaminophen 325 Mg Tablet) 650 mg PO Q6H PRN PRN Reason: Pain, Mild 1-3,fever,headache Aspirin (Aspirin Enteric Coated 81 Mg Tablet.Dr) 81 mg PO DAILY REPLACED BY [facility] Last Admin: 01/28/25 09:42 Dose: Not Given Atorvastatin Calcium (Atorvastatin Calcium 80 Mg Tablet) 80 mg PO BEDTIME [facility] Calcium Carbonate (Calcium Carbonate 750 Mg Tab.Chew) 750 mg PO Q4H PRN PRN Reason: Heartburn Dextrose (Dextrose 50 % 25 Gm/50 Ml Syringe) 25 gm IVPUSH Q15M PRN; Protocol PRN Reason: per Hypoglycemia Standing Ord. Enoxaparin Sodium (Enoxaparin Sodium 40 Mg/0.4 Ml Syringe) 40 mg SUBCUT Q24H REPLACED BY [facility] Glucose (Glucose Gel 15 Gm Gel..Gram.) 15 gm PO Q15M PRN; Protocol PRN Reason: per Hypoglycemia Standing Ord. Insulin Human Lispro (Insulin Lispro 100 Unit/Ml 3 Ml Vial) 0 unit SUBCUT QIDACHS REPLACED BY [facility]; Protocol Magnesium Hydroxide (Milk Of Magnesia 30 Ml Oral.Susp) 30 ml PO DAILY PRN PRN Reason: Constipation Melatonin (Melatonin 3 Mg Tablet) 6 mg PO BEDTIME PRN PRN Reason: Insomnia Ondansetron HCl (Ondansetron Hcl 4 Mg/2 Ml Vial) 4 mg IVPUSH Q8H PRN PRN Reason: Nausea and Vomiting Polyethylene Glycol (Polyethylene Glycol 3350 17 Gm Powd.Pack) 17 gm PO DAILY PRN PRN Reason: Constipation Home Medications ?Medication ?Instructions ?Recorded ?Confirmed ?Last Taken ?Type amlodipine 10 mg tablet 10 mg PO DAILY 01/28/25 History atorvastatin 80 mg tablet 80 mg PO BEDTIME 01/28/25 1 History dapagliflozin propanediol 10 mg 10 mg PO QAM 01/28/25 01/27/25 History tablet (Farxiga) diphenhydramine HCl 25 mg capsule 25 mg PO DAILY 01/2801/27/25 History fenofibrate 160 mg tablet 160 mg PO QAM 01/28/2501/07 History fluticasone propionate 50 1 spray intranasal DAILY 01/27/25 History mcg/actuation nasal spray,suspension losartan 100 mg tablet 100 mg PO DAILY 01/28/25 History metformin 500 mg tablet,extended 1,000 mg PO BID 01/2801/28/25 06:00 History release 24 hr omeprazole 40 mg capsule,delayed 40 mg PO DAILY Unknown History release semaglutide 14 mg tablet (Rybelsus) 14 mg PO QAM 01/2801/27/25 History Physical Exam 2 Vital Signs: Vital Signs: Last Vital Signs Temp 97.9 F 01/28/25 08:28 Pulse 75 01/28/25 08:28 Resp 24 H 01/28/25 08:28 BP 181/82 H 01/28/25 08:28 Pulse Ox 97 01/28/25 08:28 O2 Del Method Room Air 01/28/25 08:28 BMI result Body Mass Index 37.3 Neuro: Other: Mental Status: He is alert and awake with normal spontaneity of speech fluency comprehension and somewhat vague affect. He did not know what year this was and where exactly he was accept saying that he was in hospital but could not tell me which hospital. When asked, where he lived, he said that he recently rented an apartment in the city but could not tell me the name of the city. He was following commands. Cranial Nerves: CN II: Visual steven full to confrontation, visual acuity intact. CN III, IV, : Pupils equal, round, reactive to light and accommodation. Extraocular movements are normal. CN V: Facial sensation is normal. CN VII: Facial movements symmetrical. CN VIII: Hearing intact to bedside conversation is normal. CN IX, X: Palate elevates symmetrically. CN XI: Shoulder shrug and head turn symmetrical. CN XII: Tongue midline without atrophy or fasciculations. Motor: Deep tendon reflexes were trace to 1+ with no obvious focal weakness of arms or legs. Extrapyramidal: Full facial expressions and blinking. No rigidity. Movements are appropriate with no tremor or abnormality. Speech: Normal; no dysarthria or tremor. Results Labs 01/28/25 08:13 01/28/25 08:13 Labs: Short CBC 01/28/25 Range/Units 08:13 WBC 5.8 (4.8-10.8) X10*3/uL Hgb 14.6 (14.0-18.0) g/dl Hct 43.7 (42.0-52.0) % Plt Count 205 (160-400) X10*3/uL BMP 01/28/25 08:13 Sodium 140 Potassium 4.0 Chloride 110 H Carbon Dioxide 23 BUN 15 Creatinine 0.73 Calcium 9.2 Liver Function 01/28/25 Range/Units 08:13 Total Bilirubin 1.5 H (0.0-1.0) mg/dL Direct Bilirubin 0.4 (0.0-0.5) mg/dL AST 21 (5-37) U/L ALT 17 (0-40) U/L Alkaline Phosphatase 60 (39-117) U/L Albumin 4.2 (3.5-5.0) g/dL Urine 01/28/25 Range/Units 09:04 Urine Color Yellow Urine Appearance Clear Urine pH 5.5 (5.0-9.0) Ur Specific [place] 1.025 (1.005-1.025) Urine Protein 30 (1+) H (Neg-Trace) mg/dL Urine Glucose (UA) 100 H (Negative) mg/dL EXAMINATION: CT HEAD WITHOUT IV CONTRAST HISTORY: AMS. TECHNIQUE: Unenhanced helical CT of the head was performed per standard departmental protocol. Coronal and sagittal reformats of the head were also evaluated. One or more of the following techniques was used for dose reduction: Automated exposure control, adjustment of the mA and/or kV according to patient size, use of iterative reconstruction technique. DLP: 733 mGy-cm COMPARISON: There are no prior studies available for comparison. FINDINGS: BRAIN: There is diffuse prominence of the ventricular system and cortical sulci, consistent with atrophy. Periventricular and subcortical white matter hypodensities are noted which are nonspecific, but often seen in the setting of small vessel ischemic disease. There is geographic hypodensity in the left posteromedial temporal lobe, compatible with an evolving infarct. 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 There is no mass effect or midline shift. No intra- or extra-axial fluid collections are identified. SINUSES: There is trace fluid in the left sphenoid sinus. The mastoid air cells and middle ear cavities are well pneumatized. ORBITS: The visualized orbits are unremarkable. BONES/SOFT TISSUES: The extracranial soft tissues are unremarkable. The calvarium is intact. No suspicious lytic or sclerotic lesions. CT/CT head/brain wo IV con IMPRESSION: Findings compatible with an evolving left temporal infarct. No evidence of intracranial hemorrhage. These findings were discussed with Dr. De La Rosa in the emergency room on 01/28/2025 at 9:04 AM. Assessment and Plan (1) Stroke: Qualifiers: CVA mechanism: unspecified Qualified Code(s): I63.9 - Cerebral infarction, unspecified Status: Acute 79 years old man with confusion and amnesia. His blood pressure was high, diabetes was not well controlled, head CT revealed a large left posterior cerebral artery ischemic infarct, and moderate cerebellar atrophy. He might have another ischemic infarct contributing to this illness. As his symptoms started few days ago, acute stroke treatments when not considered. My recommendation is to obtain a noncontrast MRI of brain in his CTA of brain and neck for better definition. In the meantime he should be treated for high blood pressure, with anti-platelet agent and statin. Procedures Date of Service Date of Service: 01/28/25
[2025-01-28 11:17] LABS: Troponin-I High Sensitivity 34.4 ng/L (<3.5-35.0)
--- NOTE | 2025-01-28 11:53 | PC.NURSE ---
MRI form completed and faxed
[2025-01-28 12:48] LABS: Glucose, Whole Blood 163 mg/dL (60-115)
--- NOTE | 2025-01-28 13:37 | PHA.MEDREC ---
Pharmacy Consult ? Medication Reconciliation Pharmacy has completed the medication reconciliation. Spoke to patient at bedside, he was able to recall most of his meds with prompting, says he took Metformin this morning and the rest yesterday.
--- NOTE | 2025-01-28 14:14 | PC.NURSE ---
pt back from MRI, results pending
--- NOTE | 2025-01-28 16:00 | CA_ITS ---
Transthoracic Echocardiogram Patient (Last, First, Middle): Jeff Villalba, Gender: Male Date of : 1945 Age: 79 Procedure Date: 01/28/2025 Procedure Type: Transthoracic Echocardiogram Location: ER Height: 175.26 cm Weight: 114.31 kg BSA: 2.28 m2 Heart Rate: bpm BP: 159 / 36 mmHg Ribbon Hand: TO Referring MD: Clint Kang MD Microbiology Director: Ruben Moreno MD Symptoms: CVA,elevated troponin Study Quality: Fair/Contrast ECG Rhythm: Sinus Conclusions: - 1. Moderately reduced LV ejection fraction 35-40% with moderate left ventricular hypertrophy with pseudonormal filling pattern 2. Moderately dilated left atrium 3. Mild to moderate aortic stenosis and aortic regurgitation 4. Moderately dilated ascending aorta at 4.6 cm 5. Mildly elevated right atrial pressures Findings Procedure Information Contrast agent, definity, is being given per protocol without apparent complications. Left Ventricle Normal left ventricular cavity size. There is moderately increased left ventricular wall thickness. The left ventricular systolic function is moderately decreased. The visually estimated ejection fraction is between 35 40%. There is moderate global hypokinesis. Spectral Doppler is indicative of a pseudonormal filling pattern. Right Ventricle Normal right ventricular cavity size and systolic function. Atria The left atrium is moderately dilated. There is lipomatous hypertrophy of the interatrial septum. There is no evidence of interatrial shunt. The right atrium is likely dilated. Aortic Valve The aortic valve was not well visualized. There is moderate calcification of the aortic valve. There is mild to moderate aortic valve stenosis. The peak aortic gradient is 32 mmHg.The mean gradient is 17 mmHg. The aortic valve area is 1.62 cm2. There is mild to moderate aortic valve regurgitation. Mitral Valve There is mild anterior mitral leaflet thickening. There is mild mitral annular calcification. There is trace mitral valve regurgitation. There is no mitral valve stenosis. Pulmonic Valve The pulmonic valve was not well visualized. Tricuspid Valve Tricuspid regurgitation envelope is inadequate for calculation of right ventricular systolic pressure. Mildly elevated right atrial pressure. Great Vessels The aorta was not well visualized. The pulmonary artery was not well visualized. There is moderate dilatation of the ascending aorta measuring 4.60 cm. Venous The inferior vena cava is mildly dilated and collapses greater than 50% with inspiration. Pericardium/Pleural The pericardium was not well visualized. Prior Study Comparison No prior study available for comparison. Measurements 2D Linear Measurements IVSd: 1.62 0.6-0.9/0.6-1.0 cm LVIDd: 5.24 3.9-5.3/4.2-5.9 cm LVIDd Index: 2.30 2.4-3.2/2.2-3.1 cm/m2 LVIDs: 4.65 2.0-3.6 cm LVPWd: 1.41 0.7-1.1 cm LA Diam: 4.30 2.7-3.8/3.0-4.0 cm LAIDs Index: 1.89 1.5-2.3 cm/m2 LV Mass: 438.60 67-162/88-224 g LV Mass Index: 192.37 43-95/49-115 g/m2 LVOT Diam: 2.60 3.0+(-)1.3 cm 2D Systolic Function EF 4C: 34.30 >55% EF 2C: 33.80 >55% EF BiP: 35.20 >55% Mitral Valve MV Pk E: 0.71 MV PK A: 0.47 MV Decel Time: 285.00 E/A: 1.50 E'Lateral: 6.09 E'Medial: 5.11 E/E' Med: 13.90 E/E' Lat: 11.70 PHT: 83.00 MVA PHT: 2.65 Decel Grundy: 2.50 Aortic Valve AoV Pk Reji: 2.83 AoV Mn Reji: 1.92 AoV VTI: 0.62 AoV Pk Grad: 32.00 Aov Mn Grad: 17.00 TRUDI Cont.VTI: 1.62 AI Pk Reji: 4.50 AI Grundy: 3.62 LVOT LVOT Pk Reji: 0.84 LVOT Mn Reji: 0.56 LVOT VTI: 0.19 LVOT Pk Grad: 3.00 LVOT Mn Grad: 2.00 LVOT Diam: 2.60 LVOT Area: 5.31 Diastolic Function MV Pk E: 0.71 MV Pk A: 0.47 E/A: 1.50 E'Medial: 5.11 E/E' Med: 13.90 E' Laterial: 6.09 E/E' Lat: 11.70 Right Ventricle TAPSE (mm): 21.40 TVS' Reji: 11.20 Tricuspid Valve RA Press: 8.00 Great Vessels Aorta Sinus of Valsalva: 4.00 2.0-3.5 cm Ao Asc: 4.60 2.1-3.4 cm Ao Arch: 3.60 Updated in Other Vendor System with Status of Final Ruben Moreno MD electronically signed on 01/28/2025 12:20:50 PM with status of Final
[2025-01-28 18:32] LABS: Glucose, Whole Blood 174 mg/dL (60-115)
[2025-01-28] MEDS: iohexoL 350 MG/ML 100 ML INFUS..BTL IV (19:55)
[2025-01-28 20:03] LABS: Glucose, Whole Blood 187 mg/dL (60-115)
--- NOTE | 2025-01-28 21:36 | PM.EVENT ---
Event Note Date of Service: 01/28/25 Event Note: CVA: CT angio head and neck showed occluded left P1 and P2 segments with reconstitution of P3. 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 Spoke to Dr. Camacho from Neurology who mentioned no acute intervention needed for tonight; also suggested to start the patient on dual antiplatelet-patient on aspirin, started Plavix. Recommended to avoid hypotension. Thyroid nodule: Will obtain TSH, thyroid ultrasound. Outpatient PCP follow-up. Time Spent With Patient Time: Total time managing care of this patient today ____ minutes.
[2025-01-28 22:04] LABS: Thyroid Stimulating Hormone 1.04 uIU/mL (0.32-4.0)
[2025-01-29 02:58] VITALS: BP 167/52; PULSE 58; RESP 18; TEMP 36.4; O2SAT 97
[2025-01-29 06:47] LABS: MANUAL DIFF FLAG NO
[2025-01-29 07:00] LABS: Hematocrit 46.0 % (42.0-52.0); Hemoglobin 15.2 g/dl (14.0-18.0); Imm Gran Abs Auto 0.03 X10*3/uL (0.00-0.03); Imm Gran Pct Auto 0.5 % (0.0-0.4); Lymphocytes Absolute Auto 2.2 X10*3/uL (1.2-4.9); Mean Corpuscular HGB Conc 33.0 g/dl (31.0-36.0); Mean Corpuscular Hemoglobin 27.6 pg (27.0-33.0); Mean Corpuscular Volume 83.5 fL (80.0-98.0); NRBC Abs Auto 0.000 X10*3/uL (0.0-0.012); NRBC Pct Auto 0.0 /100WBC (0.0-0.2); Platelet Count 205 X10*3/uL (160-400); Red Blood Count 5.51 X10*6/uL (4.60-5.80); White Blood Count 5.8 X10*3/uL (4.8-10.8)
[2025-01-29 07:03] LABS: Anion Gap 12 (12-20); Blood Urea Nitrogen 12 mg/dL (9-16); Calcium 9.5 mg/dL (8.4-10.2); Carbon Dioxide 27 mmol/L (22-29); Chloride 107 mmol/L (96-108); Cholesterol 171 mg/dL (<200); Creatinine Clr Calc Pharmacy 90.5; Estimated Glomerular Filt Rate > 60; HDL Cholesterol 39 mg/dL (>40); Potassium 4.2 mmol/L (3.3-5.1); Sodium 142 mmol/L (135-145); Triglycerides 168 mg/dL (<150)
[2025-01-29 07:13] LABS: Glucose, Whole Blood 211 mg/dL (60-115)
[2025-01-29 07:53] VITALS: BP 153/66; PULSE 66; RESP 20; TEMP 36.2; O2SAT 100
[2025-01-29] MEDS: Aspirin Enteric Coated 81 MG TABLET.DR PO (08:00)
[2025-01-29 11:39] LABS: Glucose, Whole Blood 161 mg/dL (60-115)
[2025-01-29 12:00] VITALS: BP 134/55; PULSE 64; RESP 20; TEMP 36.3; O2SAT 94
--- NOTE | 2025-01-29 13:21 | HO.PM.IMPN ---
Subjective Subjective Date of Service: 01/29/25 Interval History: f/u on stroke floaters in eyes better, memory is still poor Physical Exam Vital Signs: Vital Signs: Last Vital Signs Temp 97.4 F 01/29/25 12:00 Pulse 64 01/29/25 12:00 Resp 20 01/29/25 12:00 BP 134/55 L 01/29/25 12:00 Pulse Ox 94 01/29/25 12:00 O2 Del Method Room Air 01/29/25 12:00 BMI result Body Mass Index 37.3 Objective Data Active Medications Acetaminophen (Acetaminophen 325 Mg Tablet) 650 mg PO Q6H PRN PRN Reason: Pain, Mild 1-3,fever,headache Amlodipine Besylate (Amlodipine Besylate 10 Mg Tablet) 10 mg PO DAILY [facility]; Protocol Last Admin: 01/29/25 08:00 Dose: 10 mg Documented By: ELLEN Aspirin (Aspirin Enteric Coated 81 Mg Tablet.) 81 mg PO DAILY [facility] Last Admin: 01/29/25 08:00 Dose: 81 mg Documented By: ELLEN Atorvastatin Calcium (Atorvastatin Calcium 80 Mg Tablet) 80 mg PO BEDTIME [facility] Last Admin: 01/28/25 20:33 Dose: 80 mg Documented By: CHAN Atorvastatin Calcium (Atorvastatin Calcium 80 Mg Tablet) 80 mg PO BEDTIME [facility] Last Admin: 01/28/25 20:33 Dose: Not Given Documented By: CHAN Non-Admin Reason: Duplicate Order Calcium Carbonate (Calcium Carbonate 750 Mg Tab.Chew) 750 mg PO Q4H PRN PRN Reason: Heartburn Clopidogrel Bisulfate (Clopidogrel Bisulfate 75 Mg Tablet) 75 mg PO DAILY [facility] Last Admin: 01/29/25 08:00 Dose: 75 mg Documented By: ELLEN Dextrose (Dextrose 50 % 25 Gm/50 Ml Syringe) 25 gm IVPUSH Q15M PRN; Protocol PRN Reason: per Hypoglycemia Standing Ord. Diphenhydramine HCl (Diphenhydramine Hcl 25 Mg Capsule) 25 mg PO DAILY PRN PRN Reason: allergies Empagliflozin (Empagliflozin 10 Mg Tablet) 10 mg PO DAILY [facility] Last Admin: 01/29/25 08:01 Dose: 10 mg Documented By: ELLEN Enoxaparin Sodium (Enoxaparin Sodium 40 Mg/0.4 Ml Syringe) 40 mg SUBCUT Q24H [facility] Last Admin: 01/29/25 12:17 Dose: 40 mg Documented By: ELLEN Fenofibrate (Fenofibrate 160 Mg Tablet) 160 mg PO DAILY [facility] Last Admin: 01/29/25 08:00 Dose: 160 mg Documented By: ELLEN Fluticasone Propionate (Fluticasone Propionate Nasal 16 Gm [place]) 1 spray NOSTRIL-B DAILY [facility] Last Admin: 01/29/25 08:00 Dose: 1 spray Documented By: ELLEN Glucose (Glucose Gel 15 Gm Gel..Gram.) 15 gm PO Q15M PRN; Protocol PRN Reason: per Hypoglycemia Standing Ord. Insulin Human Lispro (Insulin Lispro 100 Unit/Ml 3 Ml Vial) 0 unit SUBCUT QIDACHS [facility]; Protocol Last Admin: 01/29/25 12:15 Dose: 2 unit Documented By: ELLEN Magnesium Hydroxide (Milk Of Magnesia 30 Ml Oral.Susp) 30 ml PO DAILY PRN PRN Reason: Constipation Melatonin (Melatonin 3 Mg Tablet) 6 mg PO BEDTIME PRN PRN Reason: Insomnia Non-Formulary Medication (Semaglutide [Rybelsus]) 14 mg PO DAILY [facility] Ondansetron HCl (Ondansetron Hcl 4 Mg/2 Ml Vial) 4 mg IVPUSH Q8H PRN PRN Reason: Nausea and Vomiting Polyethylene Glycol (Polyethylene Glycol 3350 17 Gm Powd.Pack) 17 gm PO DAILY PRN PRN Reason: Constipation Labs 01/29/25 05:56 01/29/25 05:56 Labs: Laboratory Results - last 24 hr 01/28/25 01/28/25 01/28/25 18:26 19:57 21:19 MCV MCH MCHC RDW Plt Count MPV Immature Gran % (Auto) Neut % (Auto) Lymph % (Auto) Baker % (Auto) Eos % (Auto) Baso % (Auto) Lymph # (Auto) Baker # (Auto) Eos # (Auto) Baso # (Auto) Abs Immat Gran (auto) Absolute Neuts (auto) Absolute Nucleated RBC Nucleated RBC % (auto) Anion Gap Estim Creat Clear Calc Estimated GFR POC Glucose 174 H 187 H Random Glucose Calcium Triglycerides Cholesterol LDL Cholesterol, Calc HDL Cholesterol TSH 1.04 01/29/25 01/29/25 01/29/25 05:56 07:09 11:31 MCV 83.5 MCH 27.6 MCHC 33.0 RDW 14.2 Plt Count 205 MPV 9.5 Immature Gran % (Auto) 0.5 H Neut % (Auto) 49.9 Lymph % (Auto) 38.2 Baker % (Auto) 9.0 Eos % (Auto) 1.7 Baso % (Auto) 0.7 Lymph # (Auto) 2.2 Baker # (Auto) 0.5 Eos # (Auto) 0.1 Baso # (Auto) 0.0 Abs Immat Gran (auto) 0.03 Absolute Neuts (auto) 2.9 Absolute Nucleated RBC 0.000 Nucleated RBC % (auto) 0.0 Anion Gap 12 Estim Creat Clear Calc 90.5 Estimated GFR > 60 POC Glucose 211 H 161 H Random Glucose 204 H Calcium 9.5 Triglycerides 168 H Cholesterol 171 LDL Cholesterol, Calc 99 HDL Cholesterol 39 L TSH Assessment and Plan (1) Stroke: Status: Acute (2) Acute alteration in mental status: Status: Acute Plan 79-year-old male with multiple vascular risk factors (HTN, DM, HLD) presenting with acute confusion and disorientation, found to have an evolving left temporal infarct on CT. No focal neurological deficits on exam. Troponin elevated, likely demand-related but requires further evaluation. Hyperglycemia and suboptimal diabetes control. Proteinuria noted. Plan: Acute Ischemic Stroke Continue close neurological monitoring MRI brain confirmed acute stroke Neurology recommendation noted Maintain BP per stroke protocol--permisive HTN Physical and Occupational Therapy--no further indication Secondary Stroke Prevention with ASA, statin Troponin elevated; likely type 2 [place], no chest pain, repeat down EKG and telemetry monitoring, repeat troponin Echocardiogram EF 35 to 40%, no clot Diabetes Management SSI, diabetic diet, hold metformin for now Proteinuria outpatient follow NANCY for BP when able HTN, resume med DVT prophylaxis: Lovenox Full code diabetic diet Quality Stroke Does the patient have a stroke diagnosis?: No VTE Prior VTE?: No VTE Risk Level:: Medical - moderate - high VTE Device Contraindication: Treatment Not Indicated VTE Drug Contraindication: N/A - Med Ordered
--- NOTE | 2025-01-29 14:45 | MHC.CM.PN ---
Addendum entered by Tali Chicas RN 01/29/25 14:54: OT/PT DISCHARGED PT WHO APPEARS TO BE AT FUNCTIONAL BASELINE, CONFUSION IS CURRENTLY MAIN ISSUE, NO CASH FOR DC AT THIS TIME. Original Note: IMM 01/29/25, PT W/ISCHEMIC STROKE, CM MET W/PT WHOSE PRIMARY CONTACT/FRIEND IS PRESENT AT BEDSIDE, PT ALERT AND ORIENTED TO SELF AND FRIEND, PT LIVES ALONE, WORKS, IS FULLY INDEP W/CARE AT BASELINE, NO DME/SERVICES. PT CONFUSED AND UNABLE TO TELL CM HIS CURRENT ADDRESS, NAME OF PCP/OFFICE, PT ONLY RECALLS PCP IN OFFICE HOWEVER FRIEND NERISSA LANDING AT BEDSIDE INTERRUPTED THROUGHOUT ASSESSMENT HOWEVER DOES NOT KNOW PT'S ADDRESS OR PCP EITHER.
[2025-01-29 16:00] VITALS: BP 127/47; PULSE 62; RESP 20; TEMP 36.5; O2SAT 95
[2025-01-29 16:33] LABS: Glucose, Whole Blood 236 mg/dL (60-115)
[2025-01-29 19:01] VITALS: BP 164/70; PULSE 61; RESP 18; TEMP 36.6; O2SAT 96
[2025-01-29 20:23] LABS: Glucose, Whole Blood 235 mg/dL (60-115)
[2025-01-29 23:07] VITALS: BP 148/67; PULSE 52; RESP 18; TEMP 36.6; O2SAT 93
[2025-01-30] VITALS (8 sets, daily range): BP systolic 140–183; BP diastolic 55–77; PULSE 56–80; RESP 16–20; TEMP 36.2–36.9; O2SAT 93–98
[2025-01-30 07:48] LABS: Glucose, Whole Blood 180 mg/dL (60-115)
[2025-01-30] MEDS: Aspirin Enteric Coated 81 MG TABLET.DR PO (08:26)
--- NOTE | 2025-01-30 11:48 | MHC.CM.PN ---
Per MD, will have Psych evaluate for capacity. Patient has memory issues and no HCP. The only listed Contact is his Boss, who brought him to the Hospital. CM will follow/? need for Guardianship.
[2025-01-30 11:58] LABS: Glucose, Whole Blood 169 mg/dL (60-115)
--- NOTE | 2025-01-30 12:21 | P.PNIM_ITS ---
Subjective Subjective Date of Service: 01/30/25 Interval History: f/u on stroke He has no more visual complaint, but still with signficant memory issues, he's not able tell what hospittal he's at or tell me where he lives No physical deficit Physical Exam 2 Vital Signs: Vital Signs: Last Vital Signs Temp 98.5 F 01/30/25 11:23 Pulse 56 01/30/25 11:23 Resp 16 01/30/25 11:23 BP 164/58 H 01/30/25 11:23 Pulse Ox 95 01/30/25 11:23 O2 Del Method Room Air 01/30/25 11:23 BMI result Body Mass Index 37.3 Const: Other: General: Alert and oriented to self only, has to refer to his phone for everthing else Resp: CTA bilateral CVS: S1,S2,RRR GI: +BS, NT, no distention Skin: No rash Neuro: motor grossly intact Psych: appropriate affect Objective Data Active Medications Acetaminophen (Acetaminophen 325 Mg Tablet) 650 mg PO Q6H PRN PRN Reason: Pain, Mild 1-3,fever,headache Amlodipine Besylate (Amlodipine Besylate 10 Mg Tablet) 10 mg PO DAILY [facility]; Protocol Last Admin: 01/30/25 08:26 Dose: 10 mg Documented By: RUTH Aspirin (Aspirin Enteric Coated 81 Mg Tablet.) 81 mg PO DAILY [facility] Last Admin: 01/30/25 08:26 Dose: 81 mg Documented By: RUTH Atorvastatin Calcium (Atorvastatin Calcium 80 Mg Tablet) 80 mg PO BEDTIME [facility] Last Admin: 01/29/25 20:21 Dose: 80 mg Documented By: CHAN Calcium Carbonate (Calcium Carbonate 750 Mg Tab.Chew) 750 mg PO Q4H PRN PRN Reason: Heartburn Clopidogrel Bisulfate (Clopidogrel Bisulfate 75 Mg Tablet) 75 mg PO DAILY [facility] Last Admin: 01/30/25 08:26 Dose: 75 mg Documented By: RUTH Dextrose (Dextrose 50 % 25 Gm/50 Ml Syringe) 25 gm IVPUSH Q15M PRN; Protocol PRN Reason: per Hypoglycemia Standing Ord. Diphenhydramine HCl (Diphenhydramine Hcl 25 Mg Capsule) 25 mg PO DAILY PRN PRN Reason: allergies Empagliflozin (Empagliflozin 10 Mg Tablet) 10 mg PO DAILY [facility] Last Admin: 01/30/25 08:26 Dose: 10 mg Documented By: RUTH Enoxaparin Sodium (Enoxaparin Sodium 40 Mg/0.4 Ml Syringe) 40 mg SUBCUT Q24H [facility] Last Admin: 01/30/25 08:26 Dose: 40 mg Documented By: RUTH Fenofibrate (Fenofibrate 160 Mg Tablet) 160 mg PO DAILY [facility] Last Admin: 01/30/25 08:26 Dose: 160 mg Documented By: RUTH Fluticasone Propionate (Fluticasone Propionate Nasal 16 Gm [place]) 1 spray NOSTRIL-B DAILY [facility] Last Admin: 01/30/25 08:27 Dose: 1 spray Documented By: RUTH Glucose (Glucose Gel 15 Gm Gel..Gram.) 15 gm PO Q15M PRN; Protocol PRN Reason: per Hypoglycemia Standing Ord. Insulin Human Lispro (Insulin Lispro 100 Unit/Ml 3 Ml Vial) 0 unit SUBCUT QIDACHS [facility]; Protocol Last Admin: 01/30/25 11:59 Dose: 2 unit Documented By: RUTH Magnesium Hydroxide (Milk Of Magnesia 30 Ml Oral.Susp) 30 ml PO DAILY PRN PRN Reason: Constipation Melatonin (Melatonin 3 Mg Tablet) 6 mg PO BEDTIME PRN PRN Reason: Insomnia Non-Formulary Medication (Semaglutide [Rybelsus]) 14 mg PO DAILY [facility] Ondansetron HCl (Ondansetron Hcl 4 Mg/2 Ml Vial) 4 mg IVPUSH Q8H PRN PRN Reason: Nausea and Vomiting Polyethylene Glycol (Polyethylene Glycol 3350 17 Gm Powd.Pack) 17 gm PO DAILY PRN PRN Reason: Constipation Labs 01/29/25 05:56 01/29/25 05:56 Labs: Laboratory Results - last 24 hr 01/29/25 01/29/25 01/29/25 16:26 20:19 21:42 POC Glucose 236 H 235 H Estimat Average Glucose 220 Hemoglobin A1c % 9.3 H 01/30/25 01/30/25 07:07 11:22 POC Glucose 180 H 169 H Estimat Average Glucose Hemoglobin A1c % Assessment and Plan (1) Stroke: Status: Acute (2) Acute alteration in mental status: Status: Acute Plan 79-year-old male with multiple vascular risk factors (HTN, DM, HLD) presenting with acute confusion and disorientation, found to have an evolving left temporal infarct on CT. No focal neurological deficits on exam. Troponin elevated, likely demand-related but requires further evaluation. Hyperglycemia and suboptimal diabetes control. Proteinuria noted. Plan: Acute Ischemic Stroke complicated significant memory impairment, unable tell his address or where is at. He lives alone in an appartment and I am concern of him living independent continue BP control, statin, ASA. Does not need PT/OT according to the service. Will get Psych eval to assess competency Troponin elevated; likely type 2 [place], no chest pain, repeat down EKG and telemetry monitoring have been unremarkable so far Echocardiogram EF 35 to 40%, no clot Diabetes Management SSI, diabetic diet, can resume metformin tomorrow Proteinuria outpatient follow NANCY for BP when able HTN, resume med DVT prophylaxis: Lovenox Full code diabetic diet Quality Stroke Does the patient have a stroke diagnosis?: No VTE Prior VTE?: No VTE Risk Level:: Medical - moderate - high VTE Device Contraindication: Treatment Not Indicated VTE Drug Contraindication: N/A - Med Ordered
[2025-01-30 16:22] LABS: Glucose, Whole Blood 172 mg/dL (60-115)
[2025-01-30 21:06] LABS: Glucose, Whole Blood 182 mg/dL (60-115)
[2025-01-31 02:47] VITALS: BP 162/70; PULSE 55; RESP 18; TEMP 36.4; O2SAT 94
[2025-01-31 07:24] VITALS: BP 169/70; PULSE 65; RESP 16; TEMP 37.1; O2SAT 93
[2025-01-31 07:24] LABS: Glucose, Whole Blood 139 mg/dL (60-115)
[2025-01-31] MEDS: Aspirin Enteric Coated 81 MG TABLET.DR PO (08:34)
--- NOTE | 2025-01-31 10:55 | P.PNIM_ITS ---
Subjective Subjective Date of Service: 01/31/25 Interval History: f/u on stroke He's still strugling with memories, can recall the name of his friends, not sure where he lives, doesn't know the date and others Physical Exam 2 Vital Signs: Vital Signs: Last Vital Signs Temp 98.8 F 01/31/25 07:24 Pulse 65 01/31/25 07:24 Resp 16 01/31/25 07:24 BP 169/70 H 01/31/25 07:24 Pulse Ox 93 01/31/25 07:24 O2 Del Method Room Air 01/31/25 07:24 BMI result Body Mass Index 37.3 Const: Other: General: Alert and oriented to self only, has to refer to his phone for everthing else Resp: CTA bilateral CVS: S1,S2,RRR GI: +BS, NT, no distention Skin: No rash Neuro: motor grossly intact Psych: appropriate affect Objective Data Active Medications Acetaminophen (Acetaminophen 325 Mg Tablet) 650 mg PO Q6H PRN PRN Reason: Pain, Mild 1-3,fever,headache Amlodipine Besylate (Amlodipine Besylate 10 Mg Tablet) 10 mg PO DAILY [facility]; Protocol Last Admin: 01/31/25 08:34 Dose: 10 mg Documented By: TOBY Aspirin (Aspirin Enteric Coated 81 Mg Tablet.) 81 mg PO DAILY [facility] Last Admin: 01/31/25 08:34 Dose: 81 mg Documented By: TOBY Atorvastatin Calcium (Atorvastatin Calcium 80 Mg Tablet) 80 mg PO BEDTIME [facility] Last Admin: 01/30/25 20:42 Dose: 80 mg Documented By: CHAN Calcium Carbonate (Calcium Carbonate 750 Mg Tab.Chew) 750 mg PO Q4H PRN PRN Reason: Heartburn Clopidogrel Bisulfate (Clopidogrel Bisulfate 75 Mg Tablet) 75 mg PO DAILY [facility] Last Admin: 01/31/25 08:34 Dose: 75 mg Documented By: TOBY Dextrose (Dextrose 50 % 25 Gm/50 Ml Syringe) 25 gm IVPUSH Q15M PRN; Protocol PRN Reason: per Hypoglycemia Standing Ord. Diphenhydramine HCl (Diphenhydramine Hcl 25 Mg Capsule) 25 mg PO DAILY PRN PRN Reason: allergies Empagliflozin (Empagliflozin 10 Mg Tablet) 10 mg PO DAILY [facility] Last Admin: 01/31/25 08:34 Dose: 10 mg Documented By: TOBY Enoxaparin Sodium (Enoxaparin Sodium 40 Mg/0.4 Ml Syringe) 40 mg SUBCUT Q24H [facility] Last Admin: 01/30/25 08:26 Dose: 40 mg Documented By: RUTH Fenofibrate (Fenofibrate 160 Mg Tablet) 160 mg PO DAILY [facility] Last Admin: 01/31/25 08:34 Dose: 160 mg Documented By: TOBY Fluticasone Propionate (Fluticasone Propionate Nasal 16 Gm [place]) 1 spray NOSTRIL-B DAILY [facility] Last Admin: 01/31/25 08:41 Dose: Not Given Documented By: TOBY Non-Admin Reason: Previously Administered Glucose (Glucose Gel 15 Gm Gel..Gram.) 15 gm PO Q15M PRN; Protocol PRN Reason: per Hypoglycemia Standing Ord. Insulin Human Lispro (Insulin Lispro 100 Unit/Ml 3 Ml Vial) 0 unit SUBCUT QIDACHS [facility]; Protocol Last Admin: 01/31/25 07:38 Dose: Not Given Documented By: TOBY Non-Admin Reason: No Insulin Coverage Magnesium Hydroxide (Milk Of Magnesia 30 Ml Oral.Susp) 30 ml PO DAILY PRN PRN Reason: Constipation Melatonin (Melatonin 3 Mg Tablet) 6 mg PO BEDTIME PRN PRN Reason: Insomnia Non-Formulary Medication (Semaglutide [Rybelsus]) 14 mg PO DAILY [facility] Ondansetron HCl (Ondansetron Hcl 4 Mg/2 Ml Vial) 4 mg IVPUSH Q8H PRN PRN Reason: Nausea and Vomiting Polyethylene Glycol (Polyethylene Glycol 3350 17 Gm Powd.Pack) 17 gm PO DAILY PRN PRN Reason: Constipation Labs 01/29/25 05:56 01/29/25 05:56 Labs: Laboratory Results - last 24 hr 01/30/25 01/30/25 01/30/25 11:22 16:15 20:55 POC Glucose 169 H 172 H 182 H 01/31/25 07:04 POC Glucose 139 H Assessment and Plan (1) Stroke: Status: Acute (2) Acute alteration in mental status: Status: Acute Plan 79-year-old male with multiple vascular risk factors (HTN, DM, HLD) presenting with acute confusion and disorientation, found to have an evolving left temporal infarct on CT. No focal neurological deficits on exam. Troponin elevated, likely demand-related but requires further evaluation. Hyperglycemia and suboptimal diabetes control. Proteinuria noted. Plan: Acute Ischemic Stroke complicated significant memory impairment, unable tell his address or where is at. He lives alone in an appartment and I am concern of him living independent continue BP control, statin, ASA. Does not need PT/OT according to the service. Psych is saying they have no basis to see him Troponin elevated; likely type 2 [place], no chest pain, repeat down EKG and telemetry monitoring have been unremarkable so far Echocardiogram EF 35 to 40%, no clot Diabetes Management SSI, diabetic diet, restart metormin, continue Jardiance HTN, BP on high side, continue Norvasc, add lisinopril 10 Proteinuria outpatient follow NANCY for BP when able HTN, resume med DVT prophylaxis: Lovenox Full code diabetic diet Quality Stroke Does the patient have a stroke diagnosis?: No VTE Prior VTE?: No VTE Risk Level:: Medical - moderate - high VTE Device Contraindication: Treatment Not Indicated VTE Drug Contraindication: N/A - Med Ordered
[2025-01-31 11:33] LABS: Glucose, Whole Blood 142 mg/dL (60-115)
[2025-01-31 12:00] VITALS: BP 186/75; PULSE 71; RESP 16; TEMP 36.9; O2SAT 93
[2025-01-31 15:08] VITALS: BP 144/64; PULSE 69; RESP 16; TEMP 37.7; O2SAT 94
[2025-01-31 16:25] LABS: Glucose, Whole Blood 134 mg/dL (60-115)
[2025-01-31 19:21] VITALS: BP 152/70; PULSE 64; RESP 18; TEMP 37; O2SAT 96
[2025-01-31 21:23] LABS: Glucose, Whole Blood 162 mg/dL (60-115)
[2025-01-31 23:12] VITALS: BP 136/63; PULSE 56; RESP 18; TEMP 36.4; O2SAT 96
[2025-02-01 03:26] VITALS: BP 153/67; PULSE 54; RESP 18; TEMP 36.3; O2SAT 94
[2025-02-01 07:05] LABS: Glucose, Whole Blood 138 mg/dL (60-115)
[2025-02-01 07:19] VITALS: BP 148/71; PULSE 54; RESP 18; TEMP 36.3; O2SAT 96
--- NOTE | 2025-02-01 07:40 | MHC.CM.PN ---
EMR REVIEWED, PT REMAINS CONFUSED SINCE STROKE/ADMISSION, PER HOSPITALIST PLAN FOR PYSCH CONSULT FOR CAPACITY, CM WILL CONT TO FOLLOW DC NEEDS.
[2025-02-01] MEDS: Aspirin Enteric Coated 81 MG TABLET.DR PO (08:09)
[2025-02-01 10:55] VITALS: BP 157/69; PULSE 90; RESP 18; TEMP 37.2; O2SAT 96
--- NOTE | 2025-02-01 11:04 | HO.PM.IMPN ---
Subjective Subjective Date of Service: 02/01/25 Interval History: f/u on stroke He's still strugling with memories, has expressive aphasia that is very pronounced. Previously was saying he lived in [place] but now is saying [place] which is confirmed to be the case Physical Exam Vital Signs: Vital Signs: Last Vital Signs Temp 98.9 F 02/01/25 10:55 Pulse 90 02/01/25 10:55 Resp 18 02/01/25 10:55 BP 157/69 H 02/01/25 10:55 Pulse Ox 96 02/01/25 10:55 O2 Del Method Room Air 02/01/25 10:55 BMI result Body Mass Index 37.3 Const: Other: General: Alert and oriented to self only, has to refer to his phone for everthing else Resp: CTA bilateral CVS: S1,S2,RRR GI: +BS, NT, no distention Skin: No rash Neuro: motor grossly intact Psych: appropriate affect Objective Data Active Medications Acetaminophen (Acetaminophen 325 Mg Tablet) 650 mg PO Q6H PRN PRN Reason: Pain, Mild 1-3,fever,headache Amlodipine Besylate (Amlodipine Besylate 10 Mg Tablet) 10 mg PO DAILY [facility]; Protocol Last Admin: 02/01/25 08:09 Dose: 10 mg Documented By: VIKAS Aspirin (Aspirin Enteric Coated 81 Mg Tablet.) 81 mg PO DAILY [facility] Last Admin: 02/01/25 08:09 Dose: 81 mg Documented By: VIKAS Atorvastatin Calcium (Atorvastatin Calcium 80 Mg Tablet) 80 mg PO BEDTIME [facility] Last Admin: 01/31/25 20:39 Dose: 80 mg Documented By: JANUSZ Calcium Carbonate (Calcium Carbonate 750 Mg Tab.Chew) 750 mg PO Q4H PRN PRN Reason: Heartburn Clopidogrel Bisulfate (Clopidogrel Bisulfate 75 Mg Tablet) 75 mg PO DAILY [facility] Last Admin: 02/01/25 08:09 Dose: 75 mg Documented By: VIKAS Dextrose (Dextrose 50 % 25 Gm/50 Ml Syringe) 25 gm IVPUSH Q15M PRN; Protocol PRN Reason: per Hypoglycemia Standing Ord. Diphenhydramine HCl (Diphenhydramine Hcl 25 Mg Capsule) 25 mg PO DAILY PRN PRN Reason: allergies Empagliflozin (Empagliflozin 10 Mg Tablet) 10 mg PO DAILY [facility] Last Admin: 02/01/25 08:09 Dose: 10 mg Documented By: VIKAS Enoxaparin Sodium (Enoxaparin Sodium 40 Mg/0.4 Ml Syringe) 40 mg SUBCUT Q24H [facility] Last Admin: 02/01/25 08:13 Dose: 40 mg Documented By: VIKAS Fenofibrate (Fenofibrate 160 Mg Tablet) 160 mg PO DAILY [facility] Last Admin: 02/01/25 08:09 Dose: 160 mg Documented By: VIKAS Fluticasone Propionate (Fluticasone Propionate Nasal 16 Gm [place]) 1 spray NOSTRIL-B DAILY [facility] Last Admin: 02/01/25 08:12 Dose: Not Given Documented By: VIKAS Non-Admin Reason: Med Not Available Glucose (Glucose Gel 15 Gm Gel..Gram.) 15 gm PO Q15M PRN; Protocol PRN Reason: per Hypoglycemia Standing Ord. Insulin Human Lispro (Insulin Lispro 100 Unit/Ml 3 Ml Vial) 0 unit SUBCUT QIDACHS [facility]; Protocol Last Admin: 02/01/25 08:04 Dose: Not Given Documented By: VIKAS Non-Admin Reason: No Insulin Coverage Lisinopril (Lisinopril 10 Mg Tablet) 10 mg PO DAILY [facility]; Protocol Last Admin: 02/01/25 08:09 Dose: 10 mg Documented By: VIKAS Magnesium Hydroxide (Milk Of Magnesia 30 Ml Oral.Susp) 30 ml PO DAILY PRN PRN Reason: Constipation Melatonin (Melatonin 3 Mg Tablet) 6 mg PO BEDTIME PRN PRN Reason: Insomnia Metformin HCl (Metformin Hcl Er 500 Mg Tab.Er.24h) 1,000 mg PO DAILY [facility] Last Admin: 02/01/25 08:09 Dose: 1,000 mg Documented By: VIKAS Ondansetron HCl (Ondansetron Hcl 4 Mg/2 Ml Vial) 4 mg IVPUSH Q8H PRN PRN Reason: Nausea and Vomiting Polyethylene Glycol (Polyethylene Glycol 3350 17 Gm Powd.Pack) 17 gm PO DAILY PRN PRN Reason: Constipation Labs 01/29/25 05:56 01/29/25 05:56 Labs: Laboratory Results - last 24 hr 01/31/25 01/31/25 01/31/25 11:29 16:09 20:50 POC Glucose 142 H 134 H 162 H 02/01/25 07:00 POC Glucose 138 H Assessment and Plan (1) Stroke: Status: Acute (2) Acute alteration in mental status: Status: Acute Plan 79-year-old male with multiple vascular risk factors (HTN, DM, HLD) presenting with acute confusion and disorientation, found to have an evolving left temporal infarct on CT. No focal neurological deficits on exam. Troponin elevated, likely demand-related but requires further evaluation. Hyperglycemia and suboptimal diabetes control. Proteinuria noted. Plan: Acute Ischemic Stroke complicated significant memory issues and expressive aphasia, unable to recall recent fact and raising doubts about his ability to live alone continue BP control, statin, ASA. Does not need PT/OT according to the service. Psych is saying they have no basis to see him, OT to assess MOCA/ACL. Psych to assess capacity Troponin elevated; likely type 2 MD, no chest pain, repeat down EKG and telemetry monitoring have been unremarkable so far Echocardiogram EF 35 to 40%, no clot Diabetes Management SSI, diabetic diet, restart metormin, continue Jardiance HTN, BP on high side, continue Norvasc, add lisinopril 10 Proteinuria outpatient follow NANCY for BP when able HTN, resume med DVT prophylaxis: Lovenox Full code diabetic diet Quality Stroke Does the patient have a stroke diagnosis?: No VTE Prior VTE?: No VTE Risk Level:: Medical - moderate - high VTE Device Contraindication: Treatment Not Indicated VTE Drug Contraindication: N/A - Med Ordered
[2025-02-01 11:16] LABS: Glucose, Whole Blood 150 mg/dL (60-115)
--- NOTE | 2025-02-01 15:22 | P.CNPS_ITS ---
History of Present Illness Date of Service: 02/01/25 Chief Complaint: acute stroke Reason for Consult: assess capacity Requesting physician: Clint Kang Discussed with referring provider: Yes Sources of Information: patient interviewed and chart reviewed HPI Narrative: Patient is a 79-year-old male with hx of multiple vascular risk factors (HTN, DM, HLD) presenting with acute confusion and disorientation, found to have an evolving left temporal infarct on CT. No focal neurological deficits on exam. Troponin elevated, likely demand-related but requires further evaluation. Psychiatric consult placed for: assess capacity During psychiatric assessment, pt is oriented to self and location. Patient believes it is 2006 and can not recall the name of the hospital; he also has a difficult time recalling his home address without looking at notes he has written on his bedside table. Patient was unable to discuss what brought him into the hospital. Patient stated, Things went blank and I ended up in a hospital. I'm not sure what happened to me . Patient was unable to state he had experienced a stroke. Patient does not appreciate the risks of returning home alone with memory impairment and continuously states his friends would help him if he forgets something. Patient does not realized he is impaired in memory and what that impairment may bring. Per OT, MOCA score was 14/30 indicating moderate cognitive impairment. ACLS 4.4. Medical Evaluation Reviewed: Yes [facility] Medical History (Updated 02/01/25 @ 16:50 by Oksana Singletary NP) HLD (hyperlipidemia) Diabetes HTN (hypertension) Diagnostics Vital Signs (24Hr): Vital Signs - 24 hr 01/31/25 19:21 01/31/25 23:12 02/01/25 03:26 Temperature 98.6 F 97.6 F 97.4 F Pulse Rate 64 56 54 Respiratory Rate 18 18 18 Blood Pressure 152/70 H 136/63 153/67 H Pulse Oximetry 96 96 94 Oxygen Delivery Method Room Air Room Air Room Air 02/01/25 07:19 02/01/25 10:55 Temperature 97.4 F 98.9 F Pulse Rate 54 90 Respiratory Rate 18 18 Blood Pressure 148/71 H 157/69 H Pulse Oximetry 96 96 Oxygen Delivery Method Room Air Room Air BMI result Body Mass Index 37.3 Labs 01/29/25 05:56 01/29/25 05:56 Labs: Laboratory Results - last 48 hr 10/01/30/25 01/31/25 16:15 20:55 07:04 POC Glucose 172 H 182 H 139 H 01/31/25 01/31/25 01/31/25 11:29 16:09 20:50 POC Glucose 142 H 134 H 162 H 02/01/25 02/01/25 07:00 11:12 POC Glucose 138 H 150 H Imaging Radiology Impressions: ITS Impressions Head CT 01/28/25 08:44 IMPRESSION: Findings compatible with an evolving left temporal infarct. No evidence of intracranial hemorrhage. These findings were discussed with Dr. De La Rosa in the emergency room on 01/28/2025 at 9:04 AM. Electronically signed by: Michael Cade MD 01/28/2025 09:04 AM EDT RP Brain MRI 01/28/25 13:39 IMPRESSION: Acute nonhemorrhagic stroke/ischemia involving the left [employer] territory. Small vessel occlusive disease. Global cerebral atrophy. Electronically signed by: Justin Gutiérrez MD 01/28/2025 02:15 PM EDT RP Thyroid Ultrasound 01/28/25 21:29 IMPRESSION: Multiple bilateral thyroid nodules are identified as described above. According to ACR TI-RADS guidelines below, ultrasound-guided fine-needle aspiration of the most suspicious nodules (nodules #1 and 2 above on the right) is recommended. ACR TI-RADS Guidelines TR1 (0 points): Benign. No follow-up or biopsy required TR2 (2 points): Not Suspicious. No biopsy or follow up indicated TR3 (3 points): Mildly Suspicious. FNA if >= 2.5 cm, Follow if >= 1.5 cm TR4 (4-6 points): Moderately Suspicious. FNA if >= 1.5 cm, Follow if >= 1.0 cm TR5 (>=7 points): Highly Suspicious. FNA if >= 1.0 cm, Follow if >= 0.5 cm Electronically signed by: Michael Cade MD 01/29/2025 07:09 AM EDT RP Mental Status Exam Mental Status Exam Patient Appearance: Appropriate Patient Orientation: Person and Situation Level of Consciousness: Awake Patient Behavior: Appropriate, Cooperative and Good Eye Contact Mood Description: Calm Affect Description: Calm Patient Cognition Impaired: Yes Ability to Follow Directions: Good Speech Pattern: Clear and Difficulty Finding Words Memory Description: Episodic Impaired Hallucinations: None Delusions: Not Present Thought Process: Goal Oriented Medications Medications Current Medications Acetaminophen (Acetaminophen 325 Mg Tablet) 650 mg PO Q6H PRN PRN Reason: Pain, Mild 1-3,fever,headache Amlodipine Besylate (Amlodipine Besylate 10 Mg Tablet) 10 mg PO DAILY [facility]; Protocol Last Admin: 02/01/25 08:09 Dose: 10 mg Aspirin (Aspirin Enteric Coated 81 Mg Tablet.Dr) 81 mg PO DAILY [facility] Last Admin: 02/01/25 08:09 Dose: 81 mg Atorvastatin Calcium (Atorvastatin Calcium 80 Mg Tablet) 80 mg PO BEDTIME [facility] Last Admin: 01/31/25 20:39 Dose: 80 mg Calcium Carbonate (Calcium Carbonate 750 Mg Tab.Chew) 750 mg PO Q4H PRN PRN Reason: Heartburn Clopidogrel Bisulfate (Clopidogrel Bisulfate 75 Mg Tablet) 75 mg PO DAILY [facility] Last Admin: 02/01/25 08:09 Dose: 75 mg Dextrose (Dextrose 50 % 25 Gm/50 Ml Syringe) 25 gm IVPUSH Q15M PRN; Protocol PRN Reason: per Hypoglycemia Standing Ord. Diphenhydramine HCl (Diphenhydramine Hcl 25 Mg Capsule) 25 mg PO DAILY PRN PRN Reason: allergies Empagliflozin (Empagliflozin 10 Mg Tablet) 10 mg PO DAILY [facility] Last Admin: 02/01/25 08:09 Dose: 10 mg Enoxaparin Sodium (Enoxaparin Sodium 40 Mg/0.4 Ml Syringe) 40 mg SUBCUT Q24H [facility] Last Admin: 02/01/25 08:13 Dose: 40 mg Fenofibrate (Fenofibrate 160 Mg Tablet) 160 mg PO DAILY [facility] Last Admin: 02/01/25 08:09 Dose: 160 mg Fluticasone Propionate (Fluticasone Propionate Nasal 16 Gm [place]) 1 spray NOSTRIL-B DAILY [facility] Last Admin: 02/01/25 08:12 Dose: Not Given Glucose (Glucose Gel 15 Gm Gel..Gram.) 15 gm PO Q15M PRN; Protocol PRN Reason: per Hypoglycemia Standing Ord. Insulin Human Lispro (Insulin Lispro 100 Unit/Ml 3 Ml Vial) 0 unit SUBCUT QIDACHS [facility]; Protocol Last Admin: 02/01/25 11:20 Dose: Not Given Lisinopril (Lisinopril 10 Mg Tablet) 10 mg PO DAILY [facility]; Protocol Last Admin: 02/01/25 08:09 Dose: 10 mg Magnesium Hydroxide (Milk Of Magnesia 30 Ml Oral.Susp) 30 ml PO DAILY PRN PRN Reason: Constipation Melatonin (Melatonin 3 Mg Tablet) 6 mg PO BEDTIME PRN PRN Reason: Insomnia Metformin HCl (Metformin Hcl Er 500 Mg Tab.Er.24h) 1,000 mg PO DAILY [facility] Last Admin: 02/01/25 08:09 Dose: 1,000 mg Ondansetron HCl (Ondansetron Hcl 4 Mg/2 Ml Vial) 4 mg IVPUSH Q8H PRN PRN Reason: Nausea and Vomiting Polyethylene Glycol (Polyethylene Glycol 3350 17 Gm Powd.Pack) 17 gm PO DAILY PRN PRN Reason: Constipation Allergies Allergies Allergy/AdvReac Type Severity Reaction Status Date / Time No Known Allergies Allergy Verified 01/28/25 07:56 Assessment & Plan Assessment & Plan (1) Encounter for assessment of decision-making capacity: Status: Acute Code(s): Z01.89 - Encounter for other specified special examinations Plan Based on evaluation, T/W is unable to say patient can care for self. Also, given MOCA and ACLS score. Patient does not appreciate impairment. For now, pt does not present with capacity for medical decision making at this time; this may change and would recommend continuous monitoring. Total time managing care of this patient today _30___ minutes. Patient educated on: diagnosis
[2025-02-01 15:40] VITALS: BP 134/65; PULSE 71; RESP 20; TEMP 37.2; O2SAT 93
[2025-02-01 16:27] LABS: Glucose, Whole Blood 146 mg/dL (60-115)
[2025-02-01 19:19] VITALS: BP 135/65; PULSE 65; RESP 15; TEMP 36.7; O2SAT 93
[2025-02-01 20:11] LABS: Glucose, Whole Blood 214 mg/dL (60-115)
[2025-02-01 23:28] VITALS: BP 153/67; PULSE 62; RESP 17; TEMP 36.7; O2SAT 94
[2025-02-02 03:36] VITALS: BP 157/71; PULSE 70; RESP 16; TEMP 36.6; O2SAT 95
[2025-02-02 07:15] LABS: Glucose, Whole Blood 142 mg/dL (60-115)
[2025-02-02 07:29] VITALS: BP 158/73; PULSE 60; RESP 18; TEMP 36.5; O2SAT 96
[2025-02-02] MEDS: Aspirin Enteric Coated 81 MG TABLET.DR PO (07:50)
--- NOTE | 2025-02-02 11:46 | P.CNPS_ITS ---
History of Present Illness Date of Service: 02/02/25 Chief Complaint: acute stroke Reason for Consult: Reassess capacity Requesting physician: Tawanna Cabezas Discussed with referring provider: Yes Sources of Information: patient interviewed and chart reviewed HPI Narrative: Patient is a 79-year-old male with hx of multiple vascular risk factors (HTN, DM, HLD) presenting with acute confusion and disorientation, found to have an evolving left temporal infarct on CT. No focal neurological deficits on exam. Troponin elevated, likely demand-related but requires further evaluation. Psychiatric consult placed for: reassess capacity During psychiatric assessment, pt presents alert and oriented x3. Patient's friend, River, present for assessment. Patient presented with improve memory since assessment yesterday. Patient was able to discuss his reason for hospitalization; pt stated, I wasn't thinking like I should have been and I had a stroke. I don't like using the word stroke, because it feels too negative . Patient was able to appreciate foreseeable consequences of not following up treatment recommendations. Patient stated, I know my memory is messed up. I would assume if I don't listen to what I have to take for medication or follow up, that I would revert back and have problems.They tested my strength and saw what I needed . Patient reports he plans on having his friends visit him consistently while at home. Patient is able to appreciate the risks of returning home alone with memory impairment; however, he continues to state that he would like to be discharged home. Patient stated, If I get worse, I'll be sure to come back to the hospital . Medical Evaluation Reviewed: Yes [facility] Medical History (Updated 02/01/25 @ 16:50 by Oksana Singletary NP) HLD (hyperlipidemia) Diabetes HTN (hypertension) Diagnostics Vital Signs (24Hr): Vital Signs - 24 hr 02/01/25 15:40 02/01/25 19:19 02/01/25 23:28 Temperature 98.9 F 98.0 F 98.0 F Pulse Rate 71 65 62 Respiratory Rate 20 15 17 Blood Pressure 134/65 135/65 153/67 H Pulse Oximetry 93 93 94 Oxygen Delivery Method Room Air Room Air Room Air 02/02/25 03:36 02/02/25 07:29 Temperature 97.8 F 97.7 F Pulse Rate 70 60 Respiratory Rate 16 18 Blood Pressure 157/71 H 158/73 H Pulse Oximetry 95 96 Oxygen Delivery Method Room Air Room Air BMI result Body Mass Index 37.3 Labs 01/29/25 05:56 01/29/25 05:56 Labs: Laboratory Results - last 48 hr 01/31/25 01/31/25 02/01/25 16:09 20:50 07:00 POC Glucose 134 H 162 H 138 H 02/01/25 02/01/25 02/01/25 11:12 16:22 20:07 POC Glucose 150 H 146 H 214 H 02/02/25 07:10 POC Glucose 142 H Imaging Radiology Impressions: ITS Impressions Head CT 01/28/25 08:44 IMPRESSION: Findings compatible with an evolving left temporal infarct. No evidence of intracranial hemorrhage. These findings were discussed with Dr. De La Rosa in the emergency room on 01/28/2025 at 9:04 AM. Electronically signed by: Michael Cade MD 01/28/2025 09:04 AM EDT RP Brain MRI 01/28/25 13:39 IMPRESSION: Acute nonhemorrhagic stroke/ischemia involving the left [employer] territory. Small vessel occlusive disease. Global cerebral atrophy. Electronically signed by: Justin Gutiérrez MD 01/28/2025 02:15 PM EDT RP Thyroid Ultrasound 01/28/25 21:29 IMPRESSION: Multiple bilateral thyroid nodules are identified as described above. According to ACR TI-RADS guidelines below, ultrasound-guided fine-needle aspiration of the most suspicious nodules (nodules #1 and 2 above on the right) is recommended. ACR TI-RADS Guidelines TR1 (0 points): Benign. No follow-up or biopsy required TR2 (2 points): Not Suspicious. No biopsy or follow up indicated TR3 (3 points): Mildly Suspicious. FNA if >= 2.5 cm, Follow if >= 1.5 cm TR4 (4-6 points): Moderately Suspicious. FNA if >= 1.5 cm, Follow if >= 1.0 cm TR5 (>=7 points): Highly Suspicious. FNA if >= 1.0 cm, Follow if >= 0.5 cm Electronically signed by: Michael Cade MD 01/29/2025 07:09 AM EDT RP Mental Status Exam Mental Status Exam Patient Appearance: Appropriate Patient Orientation: Person, Place and Situation Level of Consciousness: Awake and Alert Patient Behavior: Appropriate, Cooperative and Good Eye Contact Mood Description: Calm Affect Description: Calm Ability to Follow Directions: Good Speech Pattern: Clear and Difficulty Finding Words Memory Description: Episodic Impaired Hallucinations: None Delusions: Not Present Thought Process: Intact Thought Content: positive for Intact Medications Medications Current Medications Acetaminophen (Acetaminophen 325 Mg Tablet) 650 mg PO Q6H PRN PRN Reason: Pain, Mild 1-3,fever,headache Amlodipine Besylate (Amlodipine Besylate 10 Mg Tablet) 10 mg PO DAILY [facility]; Protocol Last Admin: 02/02/25 07:51 Dose: 10 mg Aspirin (Aspirin Enteric Coated 81 Mg Tablet.Dr) 81 mg PO DAILY [facility] Last Admin: 02/02/25 07:50 Dose: 81 mg Atorvastatin Calcium (Atorvastatin Calcium 80 Mg Tablet) 80 mg PO BEDTIME [facility] Last Admin: 02/01/25 20:54 Dose: 80 mg Calcium Carbonate (Calcium Carbonate 750 Mg Tab.Chew) 750 mg PO Q4H PRN PRN Reason: Heartburn Clopidogrel Bisulfate (Clopidogrel Bisulfate 75 Mg Tablet) 75 mg PO DAILY [facility] Last Admin: 02/02/25 07:51 Dose: 75 mg Dextrose (Dextrose 50 % 25 Gm/50 Ml Syringe) 25 gm IVPUSH Q15M PRN; Protocol PRN Reason: per Hypoglycemia Standing Ord. Diphenhydramine HCl (Diphenhydramine Hcl 25 Mg Capsule) 25 mg PO DAILY PRN PRN Reason: allergies Empagliflozin (Empagliflozin 10 Mg Tablet) 10 mg PO DAILY [facility] Last Admin: 02/02/25 07:51 Dose: 10 mg Enoxaparin Sodium (Enoxaparin Sodium 40 Mg/0.4 Ml Syringe) 40 mg SUBCUT Q24H [facility] Last Admin: 02/02/25 11:12 Dose: Not Given Fenofibrate (Fenofibrate 160 Mg Tablet) 160 mg PO DAILY [facility] Last Admin: 02/02/25 07:51 Dose: 160 mg Fluticasone Propionate (Fluticasone Propionate Nasal 16 Gm [place]) 1 spray NOSTRIL-B DAILY [facility] Last Admin: 02/02/25 07:53 Dose: 1 spray Glucose (Glucose Gel 15 Gm Gel..Gram.) 15 gm PO Q15M PRN; Protocol PRN Reason: per Hypoglycemia Standing Ord. Insulin Human Lispro (Insulin Lispro 100 Unit/Ml 3 Ml Vial) 0 unit SUBCUT QIDACHS [facility]; Protocol Last Admin: 02/02/25 07:50 Dose: Not Given Lisinopril (Lisinopril 10 Mg Tablet) 10 mg PO DAILY [facility]; Protocol Last Admin: 02/02/25 07:51 Dose: 10 mg Magnesium Hydroxide (Milk Of Magnesia 30 Ml Oral.Susp) 30 ml PO DAILY PRN PRN Reason: Constipation Melatonin (Melatonin 3 Mg Tablet) 6 mg PO BEDTIME PRN PRN Reason: Insomnia Metformin HCl (Metformin Hcl Er 500 Mg Tab.Er.24h) 1,000 mg PO DAILY [facility] Last Admin: 02/02/25 07:50 Dose: 1,000 mg Ondansetron HCl (Ondansetron Hcl 4 Mg/2 Ml Vial) 4 mg IVPUSH Q8H PRN PRN Reason: Nausea and Vomiting Polyethylene Glycol (Polyethylene Glycol 3350 17 Gm Powd.Pack) 17 gm PO DAILY PRN PRN Reason: Constipation Allergies Allergies Allergy/AdvReac Type Severity Reaction Status Date / Time No Known Allergies Allergy Verified 01/28/25 07:56 Assessment & Plan Assessment & Plan (1) Encounter for assessment of decision-making capacity: Status: Acute Code(s): Z01.89 - Encounter for other specified special examinations Plan Based on today's evaluation, patient presented with improved memory. However, continues with memory/cognitive impairment. Patient is able to appreciate impairment and understand proposed treatment. Pt presents with capacity for medical decision making at this time; this may change and would recommend continuous monitoring. Would recommend visiting nurse to follow up with patient. Discussed case with Dr. Cabezas. Total time managing care of this patient today _30___ minutes.
--- NOTE | 2025-02-02 12:30 | P.DS_ITS ---
DS: Providers Provider Date of Service: 02/02/25 Date of admission: 01/28/25 09:33 Date of discharge: 02/02/25 Primary care physician: Unknown Physician Consults: 01/28/25 09:32 Consult to Neurology Routine Consulting Provider: [facility] Reason for consultation: CVA 01/30/25 12:17 Consult to Psychiatry Routine Consulting Provider: [facility] [place] Psych Covering Reason for consultation: Assess for compentency, post stroke memory issues 02/01/25 11:06 Consult to Psychiatry Routine Consulting Provider: [facility] [place] Psych Covering Reason for consultation: assess capacity DS: Diagnosis Discharge Diagnosis (1) Encounter for assessment of decision-making capacity: Status: Acute DS: Summary Hospital Course Hospital Course: Mr. Villalba is a 79-year-old male with a history of hypertension, diabetes, and hyperlipidemia who presented with acute confusion, disorientation, and memory impairment. He was found to have an evolving left temporal infarct on head CT, confirmed by MRI as an acute nonhemorrhagic stroke in the left [employer]CUE [employer] territory, with associated small vessel disease and global cerebral atrophy. CT angiogram revealed occlusion of the left P1 and P2 segments with reconstitution of P3, and moderate proximal basilar artery stenosis. On admission, he was alert only to self, unable to recall his address, and had significant expressive aphasia and memory deficits. He was started on dual antiplatelet therapy (aspirin and clopidogrel) per neurology recommendations, with statin therapy continued. Blood pressure was managed permissively per stroke protocol. Hyperglycemia was addressed with sliding scale insulin and resumption of oral agents as tolerated. DVT prophylaxis was provided with enoxaparin. During his stay, he demonstrated persistent cognitive impairment, with a MOCA score of 14/30 and moderate impairment on ACLS. Psychiatry was consulted for capacity assessment and initially found him lacking capacity for independent medical decision-making and self-care. OT and PT were involved; PT did not recommend ongoing therapy, while OT assessed cognitive function. Over the subsequent days, Mr. Villalba?s memory and awareness improved signif icantly. On the day of discharge, he demonstrated restored capacity, insight into his medical condition, and appropriate problem-solving ability. Psychiatry re-evaluated and cleared him for discharge, confirming regained capacity. Additional workup included: * Echocardiogram: EF 35?40%, no intracardiac thrombus * Thyroid ultrasound: Multiple bilateral nodules, outpatient FNA recommended for select nodules per ACR TI-RADS * Troponin elevation attributed to demand ischemia (type 2 [place]), no evidence of acute coronary syndrome * Proteinuria noted, NANCY inhibitor initiated for renal and BP protection VNA services were arranged for continued support at home. Status at Discharge Functional status at discharge: independent ambulation Overall status at discharge: patient is progressing back to baseline Time Attestation Total time managing care of this patient today: 45 mintues. Discharge Coordination Time (in mins): 35 Quality: Safe Use of Opioids Does Pt have an Active Cancer Diagnosis on the Problem List?: No Quality: Stroke Does the patient have a stroke diagnosis?: Yes Reason for No Anti-thrombotic at DC: N/A - Med Ordered Reason for No Anticoagulant at DC: N/A - Med Ordered Reason Not Initiating IV-Tpa: Not indicated Reason for No Anti-thrombotic by Day Two: Not indicated Reason for No Statin at DC: N/A - Med Ordered Physical Exam Exam: Exam: General: Alert, in no acute distress. Ambulates independently. Appears well-nourished and well-groomed. HEENT: Normocephalic, atraumatic. Pupils equal, round, and reactive to light. Extraocular movements intact. No scleral icterus or conjunctival injection. Oropharynx clear, moist mucous membranes. No facial droop. Neck: Supple, no lymphadenopathy. No carotid bruits. Thyroid palpable, no tenderness. Multiple thyroid nodules noted on imaging. Cardiovascular: Regular rate and rhythm. S1, S2 normal. No murmurs, rubs, or gallops. No peripheral edema. Respiratory: Lungs clear to auscultation bilaterally. No rales, wheezes, or rhonchi. No increased work of breathing. Gastrointestinal: Abdomen soft, non-tender, non-distended. Bowel sounds present. No hepatosplenomegaly. No masses or rebound. Genitourinary: Deferred. Musculoskeletal: Moves all extremities spontaneously. No joint swelling or deformity. Strength grossly intact in all extremities. Skin: Warm, dry, intact. No rashes, ulcers, or lesions. Neurological: * Mental Status:?Alert and oriented to person, place, and situation. Memory and expressive language significantly improved compared to admission. Follows commands appropriately. * Cranial Nerves:?II-XII grossly intact. * Motor:?Strength 5/5 throughout. No pronator drift. * Sensation:?Intact to light touch. * Cerebellar:?No dysmetria. * Gait:?Ambulates independently, steady. * Speech:?Mild residual expressive aphasia, but able to communicate needs and answer questions appropriately. * Cognition:?Improved; demonstrates insight and problem-solving ability. Psychiatric: Calm, cooperative, appropriate affect. No evidence of hallucinations or delusions. Judgment and insight appropriate for discharge. Vital Signs: Vital Signs: Last Vital Signs Temp 97.7 F 02/02/25 07:29 Pulse 60 02/02/25 07:29 Resp 18 02/02/25 07:29 BP 158/73 H 02/02/25 07:29 Pulse Ox 96 02/02/25 07:29 O2 Del Method Room Air 02/02/25 07:29 BMI result Body Mass Index 37.3 DS: Data Data Completed and Pending Labs on day of discharge: Laboratory Results - last 24 hr 02/01/25 02/01/25 02/02/25 16:22 20:07 07:10 POC Glucose 146 H 214 H 142 H Discharge Plan Discharge Anticipated Discharge Date/Time: 02/02/25 12:40 Patient Disposition: Home Health Service Discharge Diagnosis: Acute ischemic stroke, left [employer] territory (left temporal infarct), Referrals: Physician,Unknown J [Primary Care Provider, Medical] - 1 Week Discharge Medications: New aspirin 81 mg Tablet,Delayed Release (Dr/Ec) 81 mg PO DAILY 30 Days Qty: 30 0RF atorvastatin 80 mg Tablet 80 mg PO BEDTIME 30 Days Qty: 30 0RF clopidogrel 75 mg Tablet 75 mg PO DAILY 30 Days Qty: 30 0RF Continued losartan 100 mg tablet 100 mg PO DAILY fluticasone propionate 50 mcg/actuation spray,suspension 1 spray intranasal DAILY metformin 500 mg tablet extended release 24 hr 1,000 mg PO DAILY fenofibrate 160 mg tablet 160 mg PO QAM dapagliflozin propanediol [Farxiga] 10 mg tablet 10 mg PO QAM Rybelsus 14 mg tablet 14 mg PO DAILY amlodipine 10 mg tablet 10 mg PO DAILY 30 Days Qty: 0 0RF Discontinued atorvastatin 80 mg tablet 80 mg PO BEDTIME diphenhydramine HCl 25 mg capsule 25 mg PO DAILY PRN (Reason: allergies) Discharge Orders: Discharge Order (Routine); Ordered 02/02/25 Ordered By: Tawanna Cabezas Diet: Advance to usual diet Activity on Discharge: As tolerated Stand Alone Forms: Patient Portal Discharge page Print Language: Mozambican Care Plan Goals: * Optimize secondary stroke prevention with dual antiplatelet therapy and statin. * Maintain blood pressure within target range to reduce risk of recurrent stroke. * Achieve and maintain glycemic control with oral hypoglycemic agents and diabetic diet. * Monitor and manage proteinuria and renal function; titrate NANCY inhibitor as tolerated. * Ensure medication adherence and understanding of new/adjusted medications. * Support safe transition to home with VNA services for medication management, safety assessment, and ongoing monitoring. * Promote cognitive recovery and monitor for any decline in memory or function. * Encourage engagement in activities of daily living to maximize independence. * Arrange timely outpatient follow-up with primary care, neurology, and endocrinology/nephrology as indicated. * Complete outpatient evaluation and management of thyroid nodules per ACR TI- RADS recommendations. * Educate patient on stroke warning signs, when to seek emergency care, and importance of follow-up. * Support psychosocial well-being and monitor for mood or behavioral changes post-stroke. Health Concerns: * Acute ischemic stroke (left [employer]CUE IN[employer] territory) with initial significant cognitive impairment and expressive aphasia, now improving * Hypertension, suboptimally controlled * Type 2 diabetes mellitus, suboptimal glycemic control * Hyperlipidemia * Proteinuria, likely secondary to diabetes/hypertension * Reduced left ventricular ejection fraction (EF 35?40%) on echocardiogram * Multiple bilateral thyroid nodules (per ultrasound; outpatient FNA recommended for select nodules) * Obesity (BMI 37.3) * History of GERD * Recent acute alteration in mental status, now improved with regained capacity * Social isolation (lives alone), requiring VNA/home support for safe transition * Ongoing risk for recurrent cerebrovascular and cardiovascular events Plan of Treatment: Plan of Treatment * Stroke/Secondary Prevention * Continue dual antiplatelet therapy (aspirin 81 mg daily + clopidogrel 75 mg daily) for 21 days, then transition to single antiplatelet (per neurology recommendations) * Continue high-intensity statin (atorvastatin 80 mg nightly) * Maintain permissive hypertension initially, then titrate antihypertensives to target BP <140/90 as tolerated * Continue DVT prophylaxis until fully ambulatory * Hypertension * Continue amlodipine 10 mg daily * Continue lisinopril 10 mg daily (monitor renal function and potassium) * Outpatient BP monitoring and adjustment as needed * Diabetes Mellitus * Continue metformin ER 1,000 mg daily * Continue SGLT2 inhibitor (empagliflozin 10 mg daily) * Diabetic diet, home glucose monitoring * Outpatient endocrinology follow-up for glycemic optimization * Hyperlipidemia * Continue atorvastatin 80 mg nightly * Continue fenofibrate 160 mg daily * Proteinuria/CKD Risk * Continue NANCY inhibitor (lisinopril) for renal and BP protection * Monitor renal function and urine protein in outpatient setting * Cardiac * Outpatient cardiology follow-up for reduced EF (35?40%) * Continue guideline-directed medical therapy for heart failure as indicated * Monitor for symptoms of heart failure * Thyroid Nodules * Outpatient endocrinology referral for FNA of right thyroid nodules per ACR TI-RADS recommendations * Cognitive/Functional * VNA services for medication management, safety assessment, and cognitive monitoring * Encourage use of memory aids and structured routines * Outpatient neuropsychology or cognitive rehab as indicated * General * Continue home medications as listed * Monitor for recurrent neurological symptoms, chest pain, or new focal deficits * Arrange close outpatient follow-up with primary care, neurology, cardiology, and endocrinology * Educate patient and caregivers on stroke warning signs, medication adherence, and importance of follow-up * Reinforce lifestyle modifications: low-sodium, heart-healthy, diabetic diet; regular physical activity as tolerated; smoking cessation if applicable; limit alcohol * Social/Support * VNA/home health for ongoing support * Assess for additional social services assistant if needed Assessment: 79-year-old male with multiple vascular risk factors presenting with acute left [employer] territory ischemic stroke and initial significant cognitive impairment, now with improved memory and decision-making capacity, ready for discharge with ongoing secondary prevention and home support.
--- NOTE | 2025-02-02 12:30 | PM.DS ---
DS: Providers Provider Date of Service: 02/02/25 Date of admission: 01/28/25 09:33 Date of discharge: 02/02/25 Primary care physician: Unknown Physician Consults: 01/28/25 09:32 Consult to Neurology Routine Consulting Provider: [facility] Reason for consultation: CVA 01/30/25 12:17 Consult to Psychiatry Routine Consulting Provider: [facility] [place] Psych Covering Reason for consultation: Assess for compentency, post stroke memory issues 02/01/25 11:06 Consult to Psychiatry Routine Consulting Provider: [facility] [place] Psych Covering Reason for consultation: assess capacity DS: Diagnosis Discharge Diagnosis (1) Encounter for assessment of decision-making capacity: Status: Acute DS: Summary Hospital Course Hospital Course: Mr. Villalba is a 79-year-old male with a history of hypertension, diabetes, and hyperlipidemia who presented with acute confusion, disorientation, and memory impairment. He was found to have an evolving left temporal infarct on head CT, confirmed by MRI as an acute nonhemorrhagic stroke in the left [employer] territory, with associated small vessel disease and global cerebral atrophy. CT angiogram revealed occlusion of the left P1 and P2 segments with reconstitution of P3, and moderate proximal basilar artery stenosis. On admission, he was alert only to self, unable to recall his address, and had significant expressive aphasia and memory deficits. He was started on dual antiplatelet therapy (aspirin and clopidogrel) per neurology recommendations, with statin therapy continued. Blood pressure was managed permissively per stroke protocol. Hyperglycemia was addressed with sliding scale insulin and resumption of oral agents as tolerated. DVT prophylaxis was provided with enoxaparin. During his stay, he demonstrated persistent cognitive impairment, with a MOCA score of 14/30 and moderate impairment on ACLS. Psychiatry was consulted for capacity assessment and initially found him lacking capacity for independent medical decision-making and self-care. OT and PT were involved; PT did not recommend ongoing therapy, while OT assessed cognitive function. Over the subsequent days, Mr. Villalba?s memory and awareness improved significantly. On the day of discharge, he demonstrated restored capacity, insight into his medical condition, and appropriate problem-solving ability. Psychiatry re-evaluated and cleared him for discharge, confirming regained capacity. Additional workup included: Echocardiogram: EF 35?40%, no intracardiac thrombus Thyroid ultrasound: Multiple bilateral nodules, outpatient FNA recommended for select nodules per ACR TI-RADS Troponin elevation attributed to demand ischemia (type 2 [place]), no evidence of acute coronary syndrome Proteinuria noted, NANCY inhibitor initiated for renal and BP protection VNA services were arranged for continued support at home. Status at Discharge Functional status at discharge: independent ambulation Overall status at discharge: patient is progressing back to baseline Time Attestation Total time managing care of this patient today: 45 mintues. Discharge Coordination Time (in mins): 35 Quality: Safe Use of Opioids Does Pt have an Active Cancer Diagnosis on the Problem List?: No Quality: Stroke Does the patient have a stroke diagnosis?: Yes Reason for No Anti-thrombotic at DC: N/A - Med Ordered Reason for No Anticoagulant at DC: N/A - Med Ordered Reason Not Initiating IV-Tpa: Not indicated Reason for No Anti-thrombotic by Day Two: Not indicated Reason for No Statin at DC: N/A - Med Ordered Physical Exam Exam: Exam: General: Alert, in no acute distress. Ambulates independently. Appears well-nourished and well-groomed. HEENT: Normocephalic, atraumatic. Pupils equal, round, and reactive to light. Extraocular movements intact. No scleral icterus or conjunctival injection. Oropharynx clear, moist mucous membranes. No facial droop. Neck: Supple, no lymphadenopathy. No carotid bruits. Thyroid palpable, no tenderness. Multiple thyroid nodules noted on imaging. Cardiovascular: Regular rate and rhythm. S1, S2 normal. No murmurs, rubs, or gallops. No peripheral edema. Respiratory: Lungs clear to auscultation bilaterally. No rales, wheezes, or rhonchi. No increased work of breathing. Gastrointestinal: Abdomen soft, non-tender, non-distended. Bowel sounds present. No hepatosplenomegaly. No masses or rebound. Genitourinary: Deferred. Musculoskeletal: Moves all extremities spontaneously. No joint swelling or deformity. Strength grossly intact in all extremities. Skin: Warm, dry, intact. No rashes, ulcers, or lesions. Neurological: Mental Status:?Alert and oriented to person, place, and situation. Memory and expressive language significantly improved compared to admission. Follows commands appropriately. Cranial Nerves:?II-XII grossly intact. Motor:?Strength 5/5 throughout. No pronator drift. Sensation:?Intact to light touch. Cerebellar:?No dysmetria. Gait:?Ambulates independently, steady. Speech:?Mild residual expressive aphasia, but able to communicate needs and answer questions appropriately. Cognition:?Improved; demonstrates insight and problem-solving ability. Psychiatric: Calm, cooperative, appropriate affect. No evidence of hallucinations or delusions. Judgment and insight appropriate for discharge. Vital Signs: Vital Signs: Last Vital Signs Temp 97.7 F 02/02/25 07:29 Pulse 60 02/02/25 07:29 Resp 18 02/02/25 07:29 BP 158/73 H 02/02/25 07:29 Pulse Ox 96 02/02/25 07:29 O2 Del Method Room Air 02/02/25 07:29 BMI result Body Mass Index 37.3 DS: Data Data Completed and Pending Labs on day of discharge: Laboratory Results - last 24 hr 02/01/25 02/01/25 02/02/25 16:22 20:07 07:10 POC Glucose 146 H 214 H 142 H Discharge Plan Discharge Anticipated Discharge Date/Time: 02/02/25 12:40 Patient Disposition: Home Health Service Discharge Diagnosis: Acute ischemic stroke, left [employer] territory (left temporal infarct), Referrals: Physician,Unknown J [Primary Care Provider, Medical] - 1 Week Discharge Medications: New aspirin 81 mg Tablet,Delayed Release (Dr/Ec) 81 mg PO DAILY 30 Days Qty: 30 0RF atorvastatin 80 mg Tablet 80 mg PO BEDTIME 30 Days Qty: 30 0RF clopidogrel 75 mg Tablet 75 mg PO DAILY 30 Days Qty: 30 0RF Continued losartan 100 mg tablet 100 mg PO DAILY fluticasone propionate 50 mcg/actuation spray,suspension 1 spray intranasal DAILY metformin 500 mg tablet extended release 24 hr 1,000 mg PO DAILY fenofibrate 160 mg tablet 160 mg PO QAM dapagliflozin propanediol [Farxiga] 10 mg tablet 10 mg PO QAM Rybelsus 14 mg tablet 14 mg PO DAILY amlodipine 10 mg tablet 10 mg PO DAILY 30 Days Qty: 0 0RF Discontinued atorvastatin 80 mg tablet 80 mg PO BEDTIME diphenhydramine HCl 25 mg capsule 25 mg PO DAILY PRN (Reason: allergies) Discharge Orders: Discharge Order (Routine); Ordered 02/02/25 Ordered By: Tawanna Cabezas Diet: Advance to usual diet Activity on Discharge: As tolerated Stand Alone Forms: Patient Portal Discharge page Print Language: Japanese Care Plan Goals: Optimize secondary stroke prevention with dual antiplatelet therapy and statin. Maintain blood pressure within target range to reduce risk of recurrent stroke. Achieve and maintain glycemic control with oral hypoglycemic agents and diabetic diet. Monitor and manage proteinuria and renal function; titrate NANCY inhibitor as tolerated. Ensure medication adherence and understanding of new/adjusted medications. Support safe transition to home with VNA services for medication management, safety assessment, and ongoing monitoring. Promote cognitive recovery and monitor for any decline in memory or function. Encourage engagement in activities of daily living to maximize independence. Arrange timely outpatient follow-up with primary care, neurology, and endocrinology/nephrology as indicated. Complete outpatient evaluation and management of thyroid nodules per ACR TI-RADS recommendations. Educate patient on stroke warning signs, when to seek emergency care, and importance of follow-up. Support psychosocial well-being and monitor for mood or behavioral changes post-stroke. Health Concerns: Acute ischemic stroke (left [employer]GOT [employer] territory) with initial significant cognitive impairment and expressive aphasia, now improving Hypertension, suboptimally controlled Type 2 diabetes mellitus, suboptimal glycemic control Hyperlipidemia Proteinuria, likely secondary to diabetes/hypertension Reduced left ventricular ejection fraction (EF 35?40%) on echocardiogram Multiple bilateral thyroid nodules (per ultrasound; outpatient FNA recommended for select nodules) Obesity (BMI 37.3) History of GERD Recent acute alteration in mental status, now improved with regained capacity Social isolation (lives alone), requiring VNA/home support for safe transition Ongoing risk for recurrent cerebrovascular and cardiovascular events Plan of Treatment: Plan of Treatment Stroke/Secondary Prevention Continue dual antiplatelet therapy (aspirin 81 mg daily + clopidogrel 75 mg daily) for 21 days, then transition to single antiplatelet (per neurology recommendations) Continue high-intensity statin (atorvastatin 80 mg nightly) Maintain permissive hypertension initially, then titrate antihypertensives to target BP <140/90 as tolerated Continue DVT prophylaxis until fully ambulatory Hypertension Continue amlodipine 10 mg daily Continue lisinopril 10 mg daily (monitor renal function and potassium) Outpatient BP monitoring and adjustment as needed Diabetes Mellitus Continue metformin ER 1,000 mg daily Continue SGLT2 inhibitor (empagliflozin 10 mg daily) Diabetic diet, home glucose monitoring Outpatient endocrinology follow-up for glycemic optimization Hyperlipidemia Continue atorvastatin 80 mg nightly Continue fenofibrate 160 mg daily Proteinuria/CKD Risk Continue NANCY inhibitor (lisinopril) for renal and BP protection Monitor renal function and urine protein in outpatient setting Cardiac Outpatient cardiology follow-up for reduced EF (35?40%) Continue guideline-directed medical therapy for heart failure as indicated Monitor for symptoms of heart failure Thyroid Nodules Outpatient endocrinology referral for FNA of right thyroid nodules per ACR TI-RADS recommendations Cognitive/Functional VNA services for medication management, safety assessment, and cognitive monitoring Encourage use of memory aids and structured routines Outpatient neuropsychology or cognitive rehab as indicated General Continue home medications as listed Monitor for recurrent neurological symptoms, chest pain, or new focal deficits Arrange close outpatient follow-up with primary care, neurology, cardiology, and endocrinology Educate patient and caregivers on stroke warning signs, medication adherence, and importance of follow-up Reinforce lifestyle modifications: low-sodium, heart-healthy, diabetic diet; regular physical activity as tolerated; smoking cessation if applicable; limit alcohol Social/Support VNA/home health for ongoing support Assess for additional social work associate if needed Assessment: 79-year-old male with multiple vascular risk factors presenting with acute left [employer] territory ischemic stroke and initial significant cognitive impairment, now with improved memory and decision-making capacity, ready for discharge with ongoing secondary prevention and home support.
--- NOTE | 2025-02-02 12:47 | P.F2F_ITS ---
Service Date Service Date: 02/02/25 Encounter Date of encounter: 02/02/25 Reasons for Services Signs and symptoms assessed: Patient was evaluated in person due to acute onset of confusion, memory impairment, and expressive aphasia, found to have an acute left [employer] territory ischemic stroke. Hospitalization was required for diagnostic evaluation, neurological monitoring, secondary stroke prevention, and management of multiple comorbidities (hypertension, diabetes, hyperlipidemia, proteinuria, reduced ejection fraction). Ongoing assessment of cognitive status and decision-making capacity was necessary to determine safe discharge planning and need for home support services. Reason for intermediate: neurological assessment, medication management, medication treatment and teach disease management Homebound: Leaving the home is medically contraindicated at this time without the asist of a device and/or another person due th the listed conditions above and below. Reason homebound: poor balance / fall risk, psychologically impaired / unsafe and weakness related to hospital stay Certification: Based on the above findings, I certify that this patient is confined to the home and needs intermittent intermediate care, physical therapy and/or speech therapy, or continues to need occupational therapy. The patient is under my care, and I have initiated the establishment of the plan of care. The patient will be followed by a physician who will periodically review the plan of care. Time Spent With Patient Time: Total time managing care of this patient today 30 minutes.
--- NOTE | 2025-02-02 12:52 | MHC.CM.PN ---
Patient has been medically cleared for dc to home today, with services. [facility] accepted Patient and they are aware of today's dc. CM met with Patient at bedside and addressed IMM with him, providing Patient with the original and a copy has been placed on the chart.
== END 2025-02-02 16:00 | disposition home health service (06) | DRG 64 ==
LOC: HO.ED 09:11 → HO.EDOVER 09:37 → HO.IMC 16:39
PROVIDERS: Hospitalist; Admitting Provider Internal Medicine; Emergency Provider Emergency Medicine; Visit Provider Hospitalist
DX: I63.532 Cerebral infarction due to unspecified occlusion or stenosis of left posterior cerebral artery (principal); I21.A1 Myocardial infarction type 2; E11.65 Type 2 diabetes mellitus with hyperglycemia; I10 Essential (primary) hypertension; R47.01 Aphasia; E78.5 Hyperlipidemia, unspecified; R29.700 NIHSS score 0; Z20.822 Contact with and (suspected) exposure to COVID-19; Z91.148 Patient's other noncompliance with medication regimen for other reason; Z79.51 Long term (current) use of inhaled steroids; Z79.84 Long term (current) use of oral hypoglycemic drugs; Z79.899 Other long term (current) drug therapy
CPT/HCPCS: 36415; 70450; 70496; 70498; 70551; 76536; 80048; 80061; 80076; 80307; 81001; 82140; 82607; 82746; 82803; 82947; 83036; 83690; 83735; 84443; 84484; 85025; 86140; 87502; 87635; 93005; 93306; 97161; 97165; 97166; 99285; J1650; Q9957; Q9967

== ENCOUNTER → 2025-01-28 07:58 | Outpatient (BNV) | payer MEDICARE, MEDICAID, SELFPAY | PROVIDERS: Admitting Provider Internal Medicine; Emergency Provider Emergency Medicine; Visit Provider Internal Medicine Cardiovascular Disease | DX: I35.2 Nonrheumatic aortic (valve) stenosis with insufficiency (principal); I51.7 Cardiomegaly; I77.810 Thoracic aortic ectasia; I49.3 Ventricular premature depolarization; I45.10 Unspecified right bundle-branch block | CPT/HCPCS: 93010; 93306 ==

== ENCOUNTER → 2025-01-28 08:02 | Outpatient (BNV) | payer MEDICARE, MEDICAID, SELFPAY | PROVIDERS: Admitting Provider Internal Medicine; Emergency Provider Emergency Medicine; Visit Provider Radiology Diagnostic Radiology | DX: R41.82 Altered mental status, unspecified (principal) | CPT/HCPCS: 70450; 70551; 76536 ==

== ENCOUNTER → 2025-01-28 09:33 | Outpatient (BNV) | payer MEDICARE, MEDICAID, SELFPAY | PROVIDERS: Admitting Provider Internal Medicine; Emergency Provider Emergency Medicine; Visit Provider Internal Medicine | DX: I63.9 Cerebral infarction, unspecified (principal); R41.82 Altered mental status, unspecified | CPT/HCPCS: 99232 ==

== ENCOUNTER → 2025-01-28 09:33 | Outpatient (BNV) | payer MEDICARE, MEDICAID, SELFPAY | PROVIDERS: Admitting Provider Internal Medicine; Emergency Provider Emergency Medicine; Visit Provider Registered Nurse | DX: R41.89 Other symptoms and signs involving cognitive functions and awareness (principal) | CPT/HCPCS: 99222; 99232 ==

== ENCOUNTER → 2025-01-28 09:33 | Outpatient (BNV) | payer MEDICARE, MEDICAID, SELFPAY | PROVIDERS: Admitting Provider Internal Medicine; Emergency Provider Emergency Medicine; Visit Provider Psychiatry & Neurology Neurology | DX: I63.9 Cerebral infarction, unspecified (principal) | CPT/HCPCS: 99222 ==